=== PATIENT | male | born 1940 | race Caucasian/White ===

== ENCOUNTER 2022-12-05 09:00 | Outpatient (RCR) | payer MEDICARE, SELFPAY | END 2022-12-05 09:05 | disposition home or self-care (01) | LOC: PT 09:00 | DX: R26.89 Other abnormalities of gait and mobility (principal); G20 Parkinson's disease | CPT/HCPCS: 97112; 97163; 97164; 97530 ==

== ENCOUNTER 2023-04-11 14:40 | Emergency (ER) | payer MEDICARE, SELFPAY ==
[2023-04-11 14:40] VITALS: BP 140/84; PULSE 69; RESP 18; TEMP 36.8; O2SAT 97
--- NOTE | 2023-04-11 15:02 | EXP.UTC ---
Discharge Plan Disposition Patient Disposition: Home, Self-Care Condition: Good Prescriptions Prescriptions: New methocarbamol 500 mg tablet 500 mg PO BIDP PRN (Reason: muscle pain) Qty: 14 0RF No Action atenolol 25 mg tablet 25 mg PO DAILY simvastatin 40 mg tablet 40 mg PO DAILY losartan-hydrochlorothiazide 100-25 mg tablet 1 tab PO DAILY methylprednisolone 4 mg tablets,dose pack See Rx Instructions .ROUTE .COMPLEX Rx Instructions: medrol dose pack propranolol 20 mg tablet 20 mg PO DAILY Eliquis 5 mg tablet 5 mg PO DAILY Referrals Follow up/Referrals: Justin Hobson APRN [Primary Care Provider] - See instructions Activity Restrictions/Add. Instructions Additional Instructions/Restrictions: Rest the extremity. Start the pack of oral steroids that you were prescribed earlier tomorrow, since you had the steroid shot here today. The muscle relaxer (methocarbamol/robaxin) will make you drowsy, so don't drive or operate heavy machinery after taking it. It might also make you unsteady on your feet, so be very careful after taking it. Follow up with your regular doctor. GO TO THE ER FOR ANY WORSENING SYMPTOMS Clinical Impressions Clinical Impression: Left shoulder pain Instructions Patient Instructions: Methocarbamol, Ketorolac Injection, Dexamethasone Injection Discharge ED Provider: Anastacio Horton [facility] General Stated complaint: left shoulder pain Mode of Arrival: Ambulatory Source of Information: Patient Limitations: No Limitations Time Seen by Provider: 04/11/23 15:01 Description of Symptoms (Recalled from Triage Doc. by RN): HEENT Symptoms (Recalled from RN notes): Yes Resp Symptoms (Recalled from RN notes): No Skin Symptoms (Recalled from RN notes): No MS Symptoms (Recalled from RN notes): No Functional Status (Recalled from RN notes): n/a History of Present Illness Provider Complaint: Pt stated that he had a steroid shot from otho 3 weeks ago. He is having pain in left shoulder that radiates down arm. He denies chest pain, SOB, and cardiac issues. Related Data Home Medications Medication Instructions Recorded Confirmed apixaban 5 mg tablet (Eliquis) 5 mg PO DAILY 04/11/23 04/11/23 atenolol 25 mg tablet 25 mg PO DAILY 04/11/23 04/11/23 losartan 100 1 tab PO DAILY 04/11/23 04/11/23 mg-hydrochlorothiazide 25 mg tablet methylprednisolone 4 mg tablets in See Rx Instructions .Route .COMPLEX 04/11/23 04/11/23 a dose pack propranolol 20 mg tablet 20 mg PO DAILY 04/11/23 04/11/23 simvastatin 40 mg tablet 40 mg PO DAILY 04/11/23 04/11/23 Previous Rx's Medication Instructions Recorded methocarbamol 500 mg tablet 500 mg PO BIDP PRN muscle pain #14 04/11/23 tabs Allergies Allergy/AdvReac Type Severity Reaction Status Date / Time No Known Allergies Allergy Verified 04/11/23 14:59 Worker's Comp Is this a Worker's Comp case?: No [facility] Disclaimer: The information contained in this section may have been updated after the patient was seen, as this information can be updated by other users. Social History Smoking Status: Never smoker alcohol intake: never current occupational status: retired Travel in the last 8 weeks: None ROS Obtained: Yes All systems reviewed & no additional complaints except as documented Constitutional Constitutional: Denies chills and Denies fever(s) Eyes Eyes: Denies eye discharge ENT Ears, Nose, Mouth, and Throat: Denies dizziness, Denies otalgia and Denies sore throat Cardiovascular Cardiovascular: Denies chest pain Respiratory Respiratory: Denies shortness of breath, Denies chest congestion, Denies cough, Denies stridor and Denies wheezing Gastrointestinal Gastrointestingal: Denies nausea or vomiting Musculoskeletal Musculoskeletal: Reports as per HPI Integumentary/Breasts Skin/Breast: Denies rash Neurologic Neurologic: Denies dizziness and Denies paresthesias
[2023-04-11 15:48] VITALS: BP 140/84; PULSE 69; RESP 18; TEMP 36.8; O2SAT 97
== END 2023-04-11 15:48 | disposition home or self-care (01) ==
PROVIDERS: Emergency Provider Nurse Practitioner Family; PCP Nurse Practitioner Family
DX: M25.512 Pain in left shoulder (principal)
CPT/HCPCS: 73030; 96372; 99204; 99212; G0463

== ENCOUNTER → 2023-04-11 15:57 | Outpatient (CLI) | payer MEDICARE, SELFPAY ==
--- NOTE | 2023-04-11 16:15 | XR_ITS ---
FINAL REPORT CLINICAL HISTORY: PAIN IN LEFT SHOULDER FINDINGS: LEFT SHOULDER 3 views of the left shoulder were obtained. There is no acute fracture or dislocation. Visualized joint spaces are normally aligned. There are mild degenerative changes of the acromioclavicular and glenohumeral joints. Soft tissues are unremarkable. IMPRESSION: No acute bony abnormality. Reviewed, Interpreted and Dictated by Maikel Robles III, MD Transcribed by Lu Dos Santos Authenticated and [facility]
== END ==
PROVIDERS: PCP Nurse Practitioner Family; Visit Provider Nurse Practitioner Family
DX: M25.512 Pain in left shoulder (principal)
CPT/HCPCS: 73030

== ENCOUNTER → 2023-04-23 10:48 | Day surgery (SDC) | payer MEDICARE, SELFPAY ==
[2023-04-23 11:05] VITALS: BP 154/93; PULSE 53; RESP 18; TEMP 36.9; O2SAT 98; BMI 22.2
--- NOTE | 2023-04-23 12:07 | EXP.PAIN.OV ---
HPI Data of Consult Patient: new to practice Consult date: 04/23/23 Requesting Physician: Blu Patel CRNA Primary Care Provider: Justin Hobson APRN Consult Narrative Reason for consult: Shingles outbreak left shoulder/arm History of present illness: Mr. Moura is a 82 year old male who comes our clinic today for initial consultation regarding outbreak of shingles over the left shoulder and arm to the wrist. Distal lesions of the right arm are scabbing over however proximal lesions above the elbow continue to be active. Patient reports this has been going on for 3 weeks. Patient states the pain started prior to the lesions appearing. Patient has completed a 2-week cycle of acyclovir. Patient reports minimal improvement. Patient also started on gabapentin 100 mg 1 p.o. 3 times daily. However, he just started this medication last night. Patient received hydrocodone 5 mg from the ER doctor for 2 to 3 days. Patient states the hydrocodone decreased his pain by 50%. He rates his pain 9/10. CC: Blu Patel CRNA [facility] Disclaimer: The information contained in this section may have been updated after the patient was seen, as this information can be updated by other users. Medical History (Updated 04/23/23 @ 12:09 by Blu Patel CRNA) HLD (hyperlipidemia) HTN (hypertension) Irregular heart rate Pacemaker Surgical History (Updated 04/23/23 @ 11:03 by Pia Zapata RN) H/O aortic valve replacement H/O ascending aortic replacement Family History (Updated 04/23/23 @ 11:03 by Pia Zapata RN) Other No significant family history Social History (Updated 04/23/23 @ 11:03 by Pia Zapata RN) Smoking Status: Never smoker alcohol intake: never substance use type: denies use current occupational status: other Travel in the last 8 weeks: None Meds Home Medications and Allergies Home Medications Medication Instructions Recorded Confirmed Type apixaban 5 mg tablet (Eliquis) 5 mg PO DAILY 04/11/23 04/23/23 History atenolol 25 mg tablet 25 mg PO DAILY 04/11/23 04/23/23 History losartan 100 1 tab PO DAILY 04/11/23 04/23/23 History mg-hydrochlorothiazide 25 mg tablet methocarbamol 500 mg tablet 500 mg PO BIDP PRN muscle pain #14 04/11/23 04/23/23 Rx tabs methylprednisolone 4 mg tablets in See Rx Instructions .Route .COMPLEX 04/11/23 04/23/23 History a dose pack propranolol 20 mg tablet 20 mg PO DAILY 04/11/23 04/23/23 History simvastatin 40 mg tablet 40 mg PO DAILY 04/11/23 04/23/23 History acyclovir 800 mg tablet 800 mg PO 5XDAY #35 tabs 04/23/23 Rx gabapentin 300 mg capsule 300 mg PO TID #90 caps 04/23/23 Rx hydrocodone 5 mg-acetaminophen 325 1 tab PO BID #28 tabs 04/23/23 Rx mg tablet New Prescriptions to Start Prescriptions: acyclovir Bux,Poli gabapentin Bux,Poli hydrocodone-acetaminophen Bux,Poli Allergies Allergy/AdvReac Type Severity Reaction Status Date / Time No Known Allergies Allergy Verified 04/23/23 11:04 Objective Vital signs: Temp Pulse Resp BP Pulse Ox O2 Del Method 98.4 F 53 L 18 154/93 H 98 Room Air 04/23/23 11:05 04/23/23 11:05 04/23/23 11:05 04/23/23 11:05 04/23/23 11:05 04/23/23 11:05 Assessment and Plan *Assessment and plan (1) Shingles (herpes zoster) polyneuropathy: Status: Acute Category: Medical Code(s): B02.23 - Postherpetic polyneuropathy (2) Shingles outbreak: Status: Acute Category: Medical Code(s): B02.9 - Zoster without complications Plan Discussed in detail with the patient regarding treatment options. Patient has chronically anticoagulated with Eliquis. I recommend hydrocodone 5 mg 1 p.o. twice daily x14 days. Increase the gabapentin dose to gabapentin 300 mg 1 p.o. 3 times daily. Restart a 2-week cycle of acyclovir. Discussed in detail with the patie
== END | disposition home or self-care (01) ==
PROVIDERS: PCP Nurse Practitioner Family; Visit Provider Nurse Anesthetist, Certified Registered
DX: B02.23 Postherpetic polyneuropathy (principal)
CPT/HCPCS: 99202; G0463

== ENCOUNTER → 2023-05-08 13:13 | Outpatient (POV) | payer MEDICARE, SELFPAY ==
--- NOTE | 2023-05-08 13:14 | EXP.PAIN.SOA ---
[facility] Pain Management SOAP Note Subjective:: Patient is a pleasant 83-year-old male who presents today for follow-up. We are currently treating the patient for acute shingles outbreak of his left shoulder. Today he rates his pain a 5 out of 10. Patient denies any new trauma or injury. He states he continues to have significant pain in his left shoulder that goes down his arm related to his shingles outbreak. Patient does state he still has his rash however it is starting to dry in some spots. Patient does state the pain interferes with his ability perform activities of daily living. Patient does also state he has a previous history of left shoulder pain that he is scheduled to see Dr. Vincent in [place] for. Patient does have limited range of motion of his shoulder. At his last visit he was prescribed gabapentin 300 mg 3 times a day and [place] 5 mg with a 14-day supply of this medication. Patient denies any side effects from this medication. He is requesting refills on his pain medication as well as additional acyclovir. His Alphonso has been reviewed and is appropriate. Review of Systems: General: No recent weight changes, no fever, no sleep disturbances Respiratory: No cough, no shortness of air, no recurring pulmonary infections Cardiovascular/peripheral vascular: No chest pain, no palpitations, no edema, no shortness of breath Gastrointestinal: No new onset incontinence, normal bowel movements reported Genitourinary: No new onset incontinence Musculoskeletal: Left shoulder pain Psychiatric: [Normal mood/affect] Neurological: [Denies weakness in extremities], [denies balance issues] Objective:: Physical Exam: General: Alert and oriented x3, no acute distress, pleasant and cooperative Lungs: Respirations even and unlabored, symmetrical chest expansion Eyes: PERRL Musculoskeletal: Flexion and extension of left shoulder somewhat guarded secondary to pain Neurological: Speech clear, no gross sensory deficit Assessment:: Acute shingles outbreak left shoulder Plan:: Patient continues to experience significant pain in his left shoulder and around his diffuse rash related to acute shingles outbreak. I have discussed with the patient that he may benefit from trigger point injections along his rash site. Risk and benefits were discussed with patient and he would like to proceed forward with this plan of care. I will also order the patient compounding cream. I will send in a new prescription of acyclovir 800 mg 5 times a day and provide a 7-day supply of this medication. As well as send in a 1 week supply of [place] 5 mg twice daily. Patient will be scheduled for trigger point injections of his left shoulder. Patient has been instructed to contact the clinic with any concerns before the next appointment. Dr. Torres has reviewed this note and agrees with this plan of care. This note was dictated using voice recognition software and make contain errors or omissions. [facility] Disclaimer: The information contained in this section may have been updated after the patient was seen, as this information can be updated by other users. Medical History (Updated 04/23/23 @ 12:09 by Blu Patel CRNA) HLD (hyperlipidemia) HTN (hypertension) Irregular heart rate Pacemaker Surgical History (Updated 04/23/23 @ 11:03 by Pia Zapata RN) H/O aortic valve replacement H/O ascending aortic replacement Family History (Updated 04/23/23 @ 11:03 by Pia Zapata RN) Other No significant family history Social History (Updated 04/23/23 @ 12:12 by Blu Patel CRNA) Smoking Status: Never smoker alcohol intake: never substance use type: denies use current occupational status: other Travel in the last 8 weeks: None
[2023-05-08 14:55] VITALS: BP 113/58; PULSE 70; RESP 18; O2SAT 96; BMI 22.2
== END | disposition home or self-care (01) ==
PROVIDERS: PCP Nurse Practitioner Family; Visit Provider Nurse Practitioner Family
DX: B02.8 Zoster with other complications (principal)
CPT/HCPCS: 99212; G0463

== ENCOUNTER 2023-05-14 08:16 | Day surgery (SDC) | payer MEDICARE, SELFPAY ==
[2023-05-14 08:36] VITALS: BP 133/86; PULSE 73; RESP 18; TEMP 36.7; O2SAT 98; BMI 21.5
--- NOTE | 2023-05-14 09:28 | EXP.PAIN.PRO ---
Procedure Date: 05/14/23 Time: 08:50 Anesthesiologist:: Blu Patel CRNA Complications:: None Pre-procedure Diagnosis:: DJD left shoulder. Chronic left shoulder pain. Shingles outbreak left shoulder and arm. Post-procedure Diagnosis:: Same. Indications for Procedure:: Patient is a very pleasant 83-year-old male that comes our clinic today regarding chronic left shoulder pain. Also, patient having 6-week history of shingles outbreak left arm. Patient had a trauma 1 year ago to the left arm and shoulder from the fall. He is continue to have difficulty with his left shoulder since. Shingle outbreak reveals dried lesions left upper arm as well as left lower arm. Procedure Details:: Details of the procedure explained to the patient. The patient taken to procedure room placed in sitting position. The area over the left shoulder as well as scapula was cleansed using chlorhexidine's cleansing solution. Using a 25-gauge inch and half needle the left lateral superior border of the scapula was accessed with ease. 8 cc of a solution containing 0.25% Marcaine +1% lidocaine and 20 mg of Depo-Medrol was injected. At this time the left shoulder joint was accessed posteriorly. 6 cc of a solution containing 0.25% Marcaine +1% lidocaine and 20 mg of Depo-Medrol was injected. Patient tolerated procedure without difficulty. There are no complications. Plan and Disposition:: Patient was discharged without incident.
[2023-05-14 09:31] VITALS: BP 159/90; PULSE 66; RESP 18; O2SAT 98
== END 2023-05-14 09:31 | disposition home or self-care (01) ==
PROVIDERS: PCP Nurse Practitioner Family; Visit Provider Nurse Anesthetist, Certified Registered
DX: M19.012 Primary osteoarthritis, left shoulder (principal); M25.512 Pain in left shoulder; G89.29 Other chronic pain; B02.8 Zoster with other complications
CPT/HCPCS: 20552; 20610; J1040

== ENCOUNTER → 2023-06-13 14:22 | Outpatient (POV) | payer MEDICARE, SELFPAY ==
[2023-06-13 14:41] VITALS: BP 105/81; PULSE 68; RESP 18; O2SAT 97; BMI 22.2
--- NOTE | 2023-06-13 15:08 | XR_ITS ---
FINAL REPORT TECHNIQUE: 5 views CLINICAL HISTORY: CERVICAL RADICULOPATHY COMPARISON: None FINDINGS: There is reversal of the normal lordosis of the cervical spine. There is moderate degenerative change identified at the C4-5, C5-6, and C6-7 levels with disc space narrowing. Mild anterior osteophytes are present. No acute bony abnormalities are identified and no prevertebral soft tissue swelling is noted. There is bony narrowing of the C5-6 and C6-7 neural foramen bilaterally. IMPRESSION: Degenerative change as described above. No acute bony abnormality identified. Reviewed, Interpreted and Dictated by Marin Sullivan MD Transcribed by Sherice Gamble Authenticated and [facility]
--- NOTE | 2023-06-13 15:09 | EXP.PAIN.SOA ---
[facility] Pain Management SOAP Note Subjective:: Patient is a pleasant 83-year-old male who presents today for follow-up of trigger point injections of his left shoulder from acute shingles on 05/14/2023. We are currently treating the patient for left shoulder pain acute shingles outbreak. Today he rates his pain a 6 out of 10. Patient denies any new trauma or injury. He does state that he continues to have pain in his left shoulder all the way down his arm. Patient states that this has been going on for some time however it does cause difficulty performing activities of daily living such as cooking and cleaning. He states it has numbness and tingling and pressure around his wrist area. Patient does have a history of Parkinson's. He states he is scheduled for an EMG on Saturday. He also states he has been going to physical therapy and it does help. Patient states that it varies 1-2 times per week. Patient states from our last visit that the compounding cream he got did not seem to improve his symptoms. Patient was also prescribed [place] 5 mg however he states he did not notice any additional improvement with this medication. Patient was also prescribed gabapentin 300 mg 4 times a day however he states he still has not noticed significant relief. Patient does state he feels like he has neuropathy into his left arm. Patient does see Dr. Vincent for his shoulder issues and will have a follow-up coming up. His Alphonso has been reviewed and is appropriate. Review of Systems: General: No recent weight changes, no fever, no sleep disturbances Respiratory: No cough, no shortness of air, no recurring pulmonary infections Cardiovascular/peripheral vascular: No chest pain, no palpitations, no edema, no shortness of breath Gastrointestinal: No new onset incontinence, normal bowel movements reported Genitourinary: No new onset incontinence Musculoskeletal: Left shoulder, left arm pain Psychiatric: [Normal mood/affect] Neurological: [Denies weakness in extremities], [denies balance issues] Objective:: Physical Exam: General: Alert and oriented x3, no acute distress, pleasant and cooperative Lungs: Respirations even and unlabored, symmetrical chest expansion Eyes: PERRL Musculoskeletal: Flexion and extension of cervical [spine] somewhat guarded secondary to pain, [antalgic gait noted] Neurological: Speech clear, no gross sensory deficit Assessment:: Cervical radiculopathy, left shoulder pain, left arm pain, acute shingles outbreak, myofascial pain Plan:: Patient continues to experience significant pain throughout his left shoulder and down his left arm. I have discussed with the patient that his pain may be stemming from his cervical spine. Patient denies any previous cervical imaging. I will order x-ray and CT without contrast of his cervical spine. I have discussed with the patient that he may benefit from trying Lyrica. I have counseled him to discontinue the gabapentin and we will start him on 50 mg 3 times daily. We will send in a 14-day supply of this medication. Patient will return to clinic in 2 weeks for reevaluation of symptoms and plan of care. Patient has been instructed to contact the clinic with any concerns before the next appointment. Dr. Torres has reviewed this note and agrees with this plan of care. This note was dictated using voice recognition software and make contain errors or omissions. Addendum: Patient did contact our office and state that the Lyrica was not helping his pain symptoms. Patient was counseled to take 2 tablets 3 times a day. Patient called back the following day and stated that still made no additional improvement on his pain symptoms. Patient did request to go back to his previous gabapentin. We will send in a prescription of gabapentin 300 mg 4 times a day. Patient was counseled to discontinue his Lyrica. [facility] Disclaimer: The information contained in this section may have been updated after the patient was seen, as t
== END | disposition home or self-care (01) ==
PROVIDERS: PCP Nurse Practitioner Family; Visit Provider Nurse Practitioner Family
DX: M54.12 Radiculopathy, cervical region (principal); M25.512 Pain in left shoulder; M79.602 Pain in left arm; B02.9 Zoster without complications; M79.10 Myalgia, unspecified site
CPT/HCPCS: 72050; 99212; G0463

== ENCOUNTER → 2023-06-13 15:00 | Outpatient (CLI) | payer MEDICARE, SELFPAY | LOC: RAD 15:02 | PROVIDERS: PCP Nurse Practitioner Family; Visit Provider Nurse Practitioner Family | DX: M54.12 Radiculopathy, cervical region (principal); M54.2 Cervicalgia ==

== ENCOUNTER → 2023-07-02 10:44 | Outpatient (POV) | payer MEDICARE, SELFPAY ==
[2023-07-02 11:03] VITALS: BP 105/72; PULSE 69; RESP 18; O2SAT 97; BMI 22.2
--- NOTE | 2023-07-02 11:33 | A.OFFVIS_ITS ---
[facility] Pain Management SOAP Note Subjective:: This patient is a very pleasant 83-year-old male that returns our clinic today for follow-up visit regarding shingle outbreak left chest, shoulder, upper arm. Patient is being managed with gabapentin 300 mg 1 p.o. 3 times daily. Patient reports this is helping him to some degree. He reports gabapentin helps him sleep at night. Patient is 17 weeks post onset of shingle pain. Patient is currently seeing orthopedic surgery in [place] regarding chronic left shoulder pain. He continues with physical therapy 2-3 times a week for left shoulder pain. Patient had cervical x-ray. Does show some degenerative disc multiple levels. His Alphonso #[id number] has been reviewed and appropriate. Objective:: Patient is awake alert [place] x 3. No acute distress. Flexion-extension cervical lumbar spine somewhat guarded secondary to pain. Deep tendon reflexes upper lower extremities normal. Motor strength upper and lower extremities normal. There is no gross sensory deficit. Gait is normal. Assessment:: Degenerative disc cervical spine multilevels. Cervical radiculopathy. 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 Plan:: We discussed briefly potential cervical epidural steroid injection if in fact CT scan of the cervical spine shows nerve compression. We discussed in detail with the cervical spine nerves have to do with left shoulder pain. He will continue with left shoulder physical therapy 2-3 times a week under the direction of his orthopedic surgeon from [facility]. He will return to see us in 1 month. I will refill his gabapentin 300 mg 1 p.o. 3 times daily. [facility] Disclaimer: The information contained in this section may have been updated after the patient was seen, as this information can be updated by other users. Medical History HLD (hyperlipidemia) HTN (hypertension) Irregular heart rate Pacemaker Surgical History H/O aortic valve replacement H/O ascending aortic replacement Family History Other No significant family history Social History Smoking Status: Never smoker alcohol intake: never substance use type: denies use current occupational status: retired Travel in the last 8 weeks: None
== END | disposition home or self-care (01) ==
PROVIDERS: PCP Nurse Practitioner Family; Visit Provider Nurse Anesthetist, Certified Registered
DX: M50.10 Cervical disc disorder with radiculopathy, unspecified cervical region (principal); M19.012 Primary osteoarthritis, left shoulder; G89.29 Other chronic pain; B02.29 Other postherpetic nervous system involvement
CPT/HCPCS: 99212; G0463

== ENCOUNTER 2023-09-18 10:52 | Outpatient (POV) | payer MEDICARE, SELFPAY ==
[2023-09-18 11:05] VITALS: BP 130/71; PULSE 60; RESP 18; O2SAT 98; BMI 23.3
--- NOTE | 2023-09-18 11:18 | A.OFFVIS_ITS ---
[facility] Pain Management SOAP Note Subjective:: Patient is a pleasant 83-year-old male who presents today for follow-up. Today he rates his pain a 0 out of 10 but does state the pain much higher with increased activity or range of motion. Patient denies any new trauma or injury. He does state that he continues to have pain in his left shoulder all the way down his arm. He states he has recently had MRI imaging in [place]. He does state the pain when it starts is a sharp shooting pain with numbness and tingling. He does state that the pain will interfere with his ability perform activities of daily living such as cooking and cleaning. He is interested in any help we may be able to provide. He has been prescribed compounded cream in the past however did not notice significant improvement. He was also prescribed [place] in the past however states that it did not seem to make much difference either. Patient was also prescribed gabapentin 300 mg 4 times a day and states this does seem to be helping some. His Al[place] has been reviewed and is appropriate. Review of Systems: General: No recent weight changes, no fever, no sleep disturbances Respiratory: No cough, no shortness of air, no recurring pulmonary infections Cardiovascular/peripheral vascular: No chest pain, no palpitations, no edema, no shortness of breath Gastrointestinal: No new onset incontinence, normal bowel movements reported Genitourinary: No new onset incontinence Musculoskeletal: Left shoulder, left arm pain Psychiatric: [Normal mood/affect] Neurological: [Denies weakness in extremities], [denies balance issues] Objective:: Physical Exam: General: Alert and oriented x3, no acute distress, pleasant and cooperative Lungs: Respirations even and unlabored, symmetrical chest expansion Eyes: PERRL Musculoskeletal: Flexion and extension of left shoulder somewhat guarded secondary to pain, [antalgic gait noted] Neurological: Speech clear, no gross sensory deficit MRI left shoulder Acromion and acromial mid clavicular joint: Mild osteoarthritis Bursa: Small effusion subacromial subdeltoid bursa Glenoid humeral joint: Mild narrowing cartilage glenohumeral joint. Trace glenohumeral joint effusion and anterior subscapular recess Rotator cuff: Supraspinatus: Full-thickness insertional tear anterior, mid and some of the posterior insertional tendon with 10 mm retraction. Tendinosis. Mild edema of the supraspinatus muscle. Moderate grade partial bursal surface tear of the posterior infraspinatus tendon. Infraspinatus: Tendinosis. Small but high-grade partial into articular surface anterior critical zone tear. Moderate edema of the muscle. Subscapularis: Normal tendon and muscle Long head biceps tendon: Intact and normal course. Small amount of fluid surrounding the proximal extracapsular long head biceps tendon likely extension from joint effusion favored over tenosynovitis Labrum: Linear T2 hyperintensity undercutting the base of the anterior superior labrum likely a normal variant of the sublabral foramen Other: Inferior glenohumeral ligament normal. Coracoclavicular ligament normal Assessment:: Left shoulder pain, infraspinatus and supraspinatus tear Plan:: Patient is experiencing worsening pain in his left shoulder related to 10 years and other significant findings that we did go over during today's visit. I discussed with the patient that he may benefit from a left supraclavicular nerve block. Risk and benefits were discussed with patient and he would like to proceed forward with this plan of care. Due to his significant findings within his shoulder I will refer him to for evaluation of his left shoulder pain. I have also discussed with patient in future that he may benefit from a peripheral nerve stimulator or spinal cord stimulator. Educational handouts were given at todays visit we will follow-up with this at future visits. I will refill the patient's gabapentin 300 mg 4 times a day and provide a 1 month supply of this medication. Patient has been instructed to contact the clinic with any concerns before the next appointment. Dr. Torres has reviewed this note and agrees with this plan of care. This note was dictated using voice recognition software and make contain errors or omissions. [facility] Disclaimer: The information contained in this section may have been updated after the patient was seen, as this information can be updated by other users. Medical History Pacemaker Irregular heart rate HLD (hyperlipidemia) HTN (hypertension) Surgical History H/O ascending aortic replacement H/O aortic valve replacement Family History Other No significant family history Social History Smoking Status: Never smoker alcohol intake: never substance use type: denies use current occupational status: retired Travel in the last 8 weeks: None
== END 2023-09-18 23:59 | disposition home or self-care (01) ==
PROVIDERS: PCP Nurse Practitioner Family; Visit Provider Nurse Practitioner Family
DX: M75.102 Unspecified rotator cuff tear or rupture of left shoulder, not specified as traumatic (principal); M25.512 Pain in left shoulder
CPT/HCPCS: 99212; G0463

== ENCOUNTER 2024-06-29 09:00 | Outpatient (RCR) | payer MEDICARE, SELFPAY | END 2024-06-29 23:59 | disposition home or self-care (01) | LOC: OT 09:00 | PROVIDERS: Visit Provider Orthopaedic Surgery | DX: M75.122 Complete rotator cuff tear or rupture of left shoulder, not specified as traumatic (principal); Z98.890 Other specified postprocedural states | CPT/HCPCS: 97010; 97014; 97110; 97140; 97164; 97165; 97168; 97530; G0283 ==

== ENCOUNTER 2024-07-31 11:00 | Outpatient (RCR) | payer MEDICARE, SELFPAY | END 2024-07-31 23:59 | disposition home or self-care (01) | LOC: OT 11:00 | PROVIDERS: Visit Provider Orthopaedic Surgery | DX: M75.122 Complete rotator cuff tear or rupture of left shoulder, not specified as traumatic (principal); Z98.890 Other specified postprocedural states; G20.B1 Parkinson's disease with dyskinesia, without mention of fluctuations | CPT/HCPCS: 97110; 97140; 97168 ==

== ENCOUNTER 2024-09-28 09:00 | Outpatient (RCR) | payer MEDICARE, SELFPAY | END 2024-09-28 23:59 | disposition home or self-care (01) | LOC: ST 09:00 | PROVIDERS: Visit Provider Psychiatry & Neurology Neurology | DX: G20.C Parkinsonism, unspecified (principal) | CPT/HCPCS: 92507; 92524 ==

== ENCOUNTER 2024-10-14 10:48 | Outpatient (CLI) | payer MEDICARE, SELFPAY ==
--- NOTE | 2024-10-14 10:51 | FL_ITS ---
FINAL REPORT CLINICAL HISTORY: DYSPHAGIA fluoro time 4:08 21.80 mgy FINDINGS: MODIFIED BARIUM SWALLOW History: Dysphagia. FINDINGS: Fluoroscopy was provided for the speech pathologist to evaluate the swallowing mechanism. The patient was given several different consistencies of barium while the swallow was visualized fluoroscopically. The report of the speech pathologist should be consulted prior to making dietary decisions. Fluoro time: 4 minutes 8 seconds Radiation exposure in Reference air Kerma: 21.80 mGy. IMPRESSION: Modified barium swallow under fluoroscopic guidance. Please see the report of the speech pathologist for more detail. Reviewed, Interpreted and Dictated by Julien Timmons MD Transcribed by OWEN Serna Authenticated and [facility]
[2024-10-14] MEDS: BARIUM SULFATE (E-Z-HD 340GM);135ML BOTTLE 135 ML PO (11:31)
--- NOTE | 2024-10-14 14:23 | HMH.SLMBS2 ---
Speech & Language Evaluation Speech/Lang Modified Barium Swallow Start: 10/14/24 14:11 Freq: once Status: Complete Protocol: Document 10/14/24 14:11 [facility] (Rec: 10/14/24 14:23 [facility] laptop) DATE PULLER Evaluation Information DATE PULLER Evaluation Information Date of Evaluation: 10/14/24 Time of Evaluation: 11:00 Evaluation Type Initial Certification Reason for Referral dysphagia per MD order Does Patient Qualify for Service No Qualify/Failure Comment Based on results of the instrumental assessment, further swallowing therapy/ dysphagia exercises are not warranted at this time d/t safe and efficient swallow and WFL mastication and manipulation of bolus on all consistencies trialed. Pt is currently receiving skilled speech therapy services re: voice therapy r/t Parkinson's. Pt would benefit from GI consult d/t globus sensation. MBS Recommendations Plan Pt/Guardian verbally ack understanding Yes of dx/prognosis/goals Diet Dietary Recommendations Regular,Thin Liquids SL Swallow Guidelines Alt bite w/sip thru meal, Standard Aspiration Prec.,Eat at slow rate,Reflux precautions Treatment/Strategies Strategy/Precaution Recommended Sitting Upright (90 deg), Double Swallow,Small Bites and Sips,Alternate Liquids/Solids Referral/Other Recommended Referrals GI Consult Comment Pt expressed concerns of globus sensation after eating, as well as vomiting after meals. DATE PULLER Patient History Section DATE PULLER Patient History Primary Medical History Pt dx with Parkinson's disease approximately 8-12 months ago . Other PMHx includes heart disease, a pacemaker, and a previous episode of shingles. He is currently receiving skilled speech therapy services at [facility] for concerns r/ t vocal quality. Does Patient have Reflux or GERD? No Does Patient Experience Coughing or No Choking Episodes? Coughing or Choking Comment Pt stated he does not choke on food, however after meals he will vomit and choke. Does Patient Avoid Certain Food Textures Yes /Consistencies? Food Textures/Consistencies Comment Pt has the most difficulty with chicken and rice. Does Patient Utilize Compensatory No Strategies During Meals? Has Patient Experienced Significant No Weight Loss? Does Pt have Hx of Recurrent Pneumonias No or Respiratory Infections? Has Patient Noticed Change in Vocal Yes Quality? Vocal Quality Comment R/t Parkinson's disease Mod Barium Swallow Study Patient Orientation Patient Orientation Person,Place,Time,Situation Oral Expression Ability No Impairment Ability to Follow Directions Excellent Is Patient able to Perform Volitional Yes Throat Clear? Is Patient able to Perform Volitional Yes Cough? Is Patient able to Manage Secretions Yes Independently? Mod Barium Swallow Set Up Radiologist Maikel Travis Patient Presentation: Awake,Alert,Appropriate, Follows Commands Bolus Consistencies Trialed: Thin Liquids,Pudding,Puree, Mechanical Soft,Regular,Pill ( Barium Tablet) MBSS Observations Consistency & Strategy Trial Regular Penetration/Aspiration Scale 1 PAS Amount Neither Pharyngeal Residual 0-9% Mechanical Soft Penetration/Aspiration Scale 1 PAS Amount Neither Pharyngeal Residual 0-9% Puree Penetration/Aspiration Scale 1 PAS Amount Neither Pharyngeal Residual 0-9% Pudding Penetration/Aspiration Scale 1 PAS Amount Neither Pharyngeal Residual 0-9% Thin Penetration/Aspiration Scale 1 PAS Amount Neither Pharyngeal Residual 0-9% Mod Barium Swallow Impressions Oral Phase Summary & Impressions Oral Phase: Impression Minimal Impairment Oral Phase: Labial Closure No Impairment (WFL) Oral Phase: Bolus Formation Pooling L/R No Impairment (WFL) Oral Phase: Bolus Formation Under Tongue No Impairment (WFL) Oral Phase: Bolus Formation Scattered No Impairment (WFL) Loss Oral Phase: Mastication Rotary Chew Minimal Impairment Oral Phase: Mastication Munching Minimal Impairment Oral Phase: Mastication Lateralization Minimal Impairment Oral Phase: Lingual Movement No Impairment (WFL) Oral Phase: Residue Clearing No Impairment (WFL) Oral Phase: Summary Pt had minimally prolonged mastication and manipulation of bolus during regular food trials. Pharyngeal Phase Summary & Impressions Pharyngeal Phase: Impression Minimal Impairment Pharyngeal Phase: A/P Lingual Propulsion No Impairment (WFL) Spills Pharyngeal Phase: Swallow Response Delay No Impairment (WFL) Pharyngeal Phase: Base of Tongue No Impairment (WFL) Pharyngeal Phase: Epiglottic Coverage No Impairment (WFL) Pharyngeal Phase: Laryngeal Elevation No Impairment (WFL) Pharyngeal Phase: Vallecular Retention Minimal Impairment Clearing Pharyngeal Phase: Pharyngeal Wall No Impairment (WFL) Residue Clearing Pharyngeal Phase: Piriform Sinus Minimal Impairment Retention Pharyngeal Phase: Summary No aspiration or penetration observed on any consistency trialed throughout study. Trace residue observed in vallecula and pyriform sinus during thin liquid trials, which were cleared with a subsequent swallow. Pill trial WFL. Aspiration Aspiration? No Silent Aspiration? No DATE PULLER MBSS Goals Education Instructions provided DATE PULLER discussed clinical observations made during instrumental assessment, diet recommendations, compensatory strategies, and benefit of GI consult with pt and , each of which expressed understanding. Patient/Caregiver Able to Recall Able to recall/restate Information Reinforcement needed No PHYSICIAN CERTIFICATION: I certify the specified therapy services for Tiagopelondenis Moura are required, authorized, and reviewed every 30 days.
== END 2024-10-14 23:59 | disposition home or self-care (01) ==
LOC: RAD 10:49
PROVIDERS: PCP Nurse Practitioner Family; Visit Provider Nurse Practitioner Family
DX: R13.10 Dysphagia, unspecified (principal)
CPT/HCPCS: 74230; 92611

== ENCOUNTER 2024-10-26 09:00 | Outpatient (RCR) | payer MEDICARE, SELFPAY | END 2024-10-26 23:59 | disposition home or self-care (01) | LOC: ST 09:00 | PROVIDERS: Visit Provider Psychiatry & Neurology Neurology | DX: G20.C Parkinsonism, unspecified (principal) | CPT/HCPCS: 92507 ==

== ENCOUNTER 2025-05-08 17:51 | Emergency (ER) | payer MEDICARE, SELFPAY ==
--- OUTSIDE RECORDS SUMMARY | 2024-10-29 11:43 | XMS_ITS | Continuity of Care Document ---
Author Name [facility] Organization [facility] Care Team Providers Care Engineering Technician Name Role Phone [facility] Unavailable Unavailable Problems Combined list of problems from Department of Defense and [facility] facilities. It does not include entries that were removed or entered in error. Problem Status Onset Date Problem Type Date of Resolution Comments Source Hypertension Active Condition [facility] Mitral Valve Insufficiency Active Condition May 25, 2002 Entered By: SUJATHA KRAFT Comment: (mild) and trace AI per ECHO 05-02 [facility] Immunizations Combined list of available immunizations from the Department of [facility] and [facility] facilities. Immunization Series Date Given Administered By Site Reaction Lot Number CVX Code Drug Certified Peer Specialist Status Comments Source TD(ADULT) UNSPECIFIED FORMULATION 1995 139 complet ed [place] [facility] Encounters Combined list of: 1) Encounters from Department of [facility] facilities going backup to the last 18 months, not all [place] inpatient encounters are included; 2) Encounters from the Department [facility] facilities going backup to 280 months. Location Location Details Encounter Type Encounter Number Reason For Visit Attending Provider ADM Date DC Date Status Disposition Source [facility] Outpatient Encounter [id number] 10/29 [place] [facility] Outpatient Encounter [id number] 10/29 [place] [facility] Social History Combined list of available smoking, tobacco, and other social history from Department of [facility] and [facility] facilities. Social History Type Response Date Comment Source Tobacco smoking status NHIS HF V9 CURRENT NON-SMOKER 02/16/2002 [facility] History of tobacco use HF V9 INACTIVATE TOBACCO USE SCREEN 02/16/2002 quit 1963 (smoked 1 yr only) [facility]
[2025-05-08 17:52] VITALS: BP 136/74; PULSE 67; RESP 16; TEMP 36.4; O2SAT 97; BMI 22.6
[2025-05-08 18:01] VITALS: BP 136/74; PULSE 61; O2SAT 96
--- NOTE | 2025-05-08 18:08 | PC.NURSE ---
stroke alert called at this time
--- NOTE | 2025-05-08 18:10 | CT_ITS ---
PROCEDURE INFORMATION: Exam: CT Head Without Contrast Exam date and time: 05/08/2025 6:12 PM Age: 85 years old Clinical indication: Stroke-like symptoms; Other: Possible stroke TECHNIQUE: Imaging protocol: Computed tomography of the head without contrast. Radiation optimization: All CT scans at this facility use at least one of these dose optimization techniques: automated exposure control; mA and/or kV adjustment per patient size (includes targeted exams where dose is matched to clinical indication); or iterative reconstruction. Other technique: STROKE PROTOCOL was implemented. COMPARISON: CR XR CERVICAL SPINE 5V 06/13/2023 3:10 PM FINDINGS: Brain: Age-related cerebral volume loss. 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 The collection over the right parietal lobe measures 5 mm maximum thickness in the contralateral collection measures 7 mm in thickness. The collection over the right frontal lobe measures 6 mm in thickness. All of the collections exhibit minor mass effect on the underlying cerebral cortex. No sulcal effacement or midline shift. No acute intracranial hemorrhage or subdural hematoma. No evidence of acute/subacute infarct. 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 Cerebral ventricles: No hydrocephalus. Paranasal sinuses: No air fluid levels. Mastoid air cells: Visualized mastoid air cells are clear. Bones: No evidence of acute calvarial or skull base fracture. Soft tissues: Unremarkable. IMPRESSION: 1. No evidence of acute intracranial hemorrhage or acute/subacute vascular territory infarct. 2. 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 3. 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 ASSESSMENT: ASPECTS ([place] Stroke Program Early CT Score) is 10.
--- NOTE | 2025-05-08 18:10 | CT_ITS ---
PROCEDURE INFORMATION: Exam: CTA Head With Contrast, Arteriography Exam date and time: 05/08/2025 6:14 PM Age: 85 years old Clinical indication: Stroke-like symptoms; Other: Possible stroke TECHNIQUE: Imaging protocol: Computed tomographic angiography of the head with contrast. Exam focused on the arteries. 3D rendering (Not supervised by radiologist): MIP and/or 3D reconstructed images were created by the technologist. Radiation optimization: All CT scans at this facility use at least one of these dose optimization techniques: automated exposure control; mA and/or kV adjustment per patient size (includes targeted exams where dose is matched to clinical indication); or iterative reconstruction. Contrast material: ISO 370; Contrast volume: 80 ml; Contrast route: INTRAVENOUS (IV); COMPARISON: CT HEAD/BRAIN WO CON 05/08/2025 6:12 PM FINDINGS: ANTERIOR CIRCULATION: Right internal carotid artery: Intracranial segment is patent with no significant stenosis. No aneurysm. Right middle cerebral artery: No occlusion or significant stenosis. No aneurysm. Right anterior cerebral artery: Hypoplastic a1 segment of the right anterior cerebral artery compensated via the contralateral FLOR and anterior communicating artery. No occlusion or significant stenosis distally. No aneurysm. Left internal carotid artery: Minor ectasia in the left internal carotid artery. No aneurysm. No occlusion or significant stenosis. Left middle cerebral artery: No occlusion or significant stenosis. No aneurysm. Left anterior cerebral artery: No occlusion or significant stenosis. No aneurysm. POSTERIOR CIRCULATION: Right vertebral artery: No occlusion or significant stenosis. No aneurysm. Left vertebral artery: No occlusion or significant stenosis. No aneurysm. Basilar artery: No occlusion or significant stenosis. No aneurysm. Right posterior cerebral artery: No occlusion or significant stenosis. No aneurysm. Left posterior cerebral artery: No occlusion or significant stenosis. No aneurysm. Brain: No abnormally enhancing brain lesion, mass effect, or midline shift. Cerebral ventricles: No hydrocephalus. Bones/joints: No acute calvarial or skull base fracture. Soft tissues: Unremarkable. IMPRESSION: 1. No evidence of large vessel occlusion or significant stenosis in the intracranial cerebral arteries. 2. Concurrent neck CTA reported separately. PROCEDURE INFORMATION: Exam: CT Maxillofacial With Contrast Exam date and time: 05/08/2025 6:14 PM Age: 85 years old Clinical indication: Stroke-like symptoms; Other: Possible stroke TECHNIQUE: Imaging protocol: Computed tomography of the face with contrast. Radiation optimization: All CT scans at this facility use at least one of these dose optimization techniques: automated exposure control; mA and/or kV adjustment per patient size (includes targeted exams where dose is matched to clinical indication); or iterative reconstruction. COMPARISON: CT HEAD/BRAIN WO CON 05/08/2025 6:12 PM FINDINGS: Paranasal sinuses: Atrophic right maxillary sinus with sclerotic changes of the sinus wall compatible with sequelae of chronic and/or recurrent sinusitis. No evidence of acute sinusitis. Orbital cavities: Globes and orbital structures are unremarkable. Bones: No evidence of acute fracture. Bilateral temporomandibular joints are congruent. Pterygoid plates and lamina papyracea are intact. Soft tissues: Unremarkable. IMPRESSION: No acute findings.
--- NOTE | 2025-05-08 18:10 | CT_ITS ---
PROCEDURE INFORMATION: Exam: CTA Neck With Contrast Exam date and time: 05/08/2025 6:14 PM Age: 85 years old Clinical indication: Stroke-like symptoms; Other: Possible stroke TECHNIQUE: Imaging protocol: Computed tomographic angiography of the neck with contrast. Exam focused on the cervical segments of the vasculature. 3D rendering (Not supervised by radiologist): MIP and/or 3D reconstructed images were created by the technologist. Radiation optimization: All CT scans at this facility use at least one of these dose optimization techniques: automated exposure control; mA and/or kV adjustment per patient size (includes targeted exams where dose is matched to clinical indication); or iterative reconstruction. Contrast material: ISO 370; Contrast volume: 80 ml; Contrast route: INTRAVENOUS (IV); COMPARISON: CT ANGIO NECK 05/08/2025 6:14 PM FINDINGS: Right common carotid artery: No stenosis. No dissection or occlusion. Right internal carotid artery: No stenosis of the extracranial segment. No dissection or occlusion. Right external carotid artery: No occlusion or stenosis of the origin. Left common carotid artery: No stenosis. No dissection or occlusion. Left internal carotid artery: Atherosclerotic plaque at the left carotid bulb and proximal internal carotid artery without significant stenosis. No dissection or aneurysm. Left external carotid artery: No occlusion or stenosis of the origin. Right vertebral artery: No stenosis. No dissection or occlusion. Left vertebral artery: No stenosis. No dissection or occlusion. Soft tissues: Unremarkable. Bones/joints: No acute osseous abnormality. IMPRESSION: 1. No evidence of dissection, occlusion or significant stenosis in the extracranial cerebral arteries. 2. Concurrent head CTA reported separately. REFERENCES: NASCET CRITERIA. The degree of stenosis in the cervical segment of the internal carotid artery is based on NASCET criteria. Normal is no stenosis. Mild is less than 50% stenosis. Moderate is 50-69% stenosis. Severe is 70% to 99% stenosis. Total occlusion is no detectable patent lumen.
--- NOTE | 2025-05-08 18:10 | ECG_ITS ---
APPROVED REPORT Exam: Resting ECG HR:66 bpm ECG Measurements Heart Rate 66 AXES QRSd 179 QRS 268 QT 474 T 72 QTc 488 Conclusion UNCERTAIN IRREGULAR RHYTHM ELECTRONIC VENTRICULAR PACEMAKER -- CONTOUR ANALYSIS BASED ON INTRINSIC RHYTHM RIGHT AXIS DEVIATION [QRS AXIS > 100] RIGHT BUNDLE BRANCH BLOCK AND POSSIBLE RIGHT VENTRICULAR HYPERTROPHY [RBBB, 1.5 mV R IN V1, RAD] INFERIOR MYOCARDIAL INFARCTION , POSSIBLY ACUTE [40+ ms Q WAVE AND/OR ST/T ABNORMALITY IN II/aVF] ACUTE OR UNCONFIRMED REPORT Electronically signed by : Anastacio Salinas, 05/08/2025 23:12:10
[2025-05-08 18:17] LABS: Hematocrit 43.8 % (42.0-52.0); Hemoglobin 14.3 g/dL (14.1-18.0); Immature Granulocytes % 0.4 %; Mean Corpuscular HGB Conc 32.6 g/dL (31.8-35.4); Mean Corpuscular Hemoglobin 30.4 pg (27.0-31.2); Mean Corpuscular Volume 93.0 fl (80-94); Nucleated Red Blood Cells % 0 %; Platelet Count 156 K/mm3 (142-424); Red Blood Count 4.71 M/mm3 (4.60-6.20); Red Cell Distribution Width-SD 46.5 fL; White Blood Count 7.8 K/mm3 (4.8-10.8)
[2025-05-08] MEDS: SODIUM CHLORIDE 0.9% 10ML SYR (RAD ONLY) 10 ML IV (18:20)
[2025-05-08] MEDS: 0.9 % SODIUM CHLORIDE 50 ML VIAL IV (18:20)
[2025-05-08] MEDS: IOPAMIDOL-370 (76%);100ML BOTTLE 80 ML IV (18:20)
--- OUTSIDE RECORDS SUMMARY | 2025-05-08 18:22 | XMS_ITS | Clinical Summary ---
Author Organization Healthcare Address [address] [place] [address] Care Team Providers Care Depositing Machine Operator Name Role Phone Unavailable Primary Care Provider Unavailabl e Social History Tobacco Use Types Packs/Day Years Used Date Smoking Tobacco: Never Assessed Sex and Gender Information Value Date Recorded Sex Assigned at Not on file Legal Sex Male 7:38 PM EDT Gender Identity Not on file Sexual Orientation Not on file Plan of Treatment Upcoming Encounters Date Type Department Care Team (Late st Contact Info) Description 05/14/2025 11:20 AM EST Office Visit [facility] [address] [place] [address] Yany Lin, LEAD DESIGNER [address] [facility] [address] [place] [address] Health Maintenance Due Date Last Done Comments [facility]-Depression Screening 1942 [facility]-Medicare Annual Wellness (AWV) 1942 [facility]-Infant/Child/Adol SDOH Screenings 1942 [facility]- SDOH Screenings 1960 [facility]-Adult SDOH Screenings 1960 [facility]-RSV Vaccine: 60+ Years or (1 - 1-dose 75+ series) 2017 [facility]-DTaP,Tdap,and Td Vaccines (2 - Td or Tdap) 08/06/2023 08/06/2013 [id number] Vaccine (2 - 2024- season) 2025 01/28/2021 [facility]-Influenza Vaccine (#1) 2025 [facility]-Pneumococcal Vaccine: 50+ Years Completed 05/01/2022 [facility]-Zoster Vaccines Completed 01/23/2024, 11/21/2023 HPV Vaccines Aged Out No longer eligi ble based on patient's age to complete this topic [facility]-HIB Vaccines Aged Out No longer e ligible based on patient's age to complete this topic [facility]-Hepatitis A Vaccines Aged Out No longer eligible based on patient's age to complete this topic [facility]-IPV Vaccines Aged Out No longer e ligible based on patient's age to complete this topic [facility]-Rotavirus Vaccines Aged Out No lo nger eligible based on patient's age to complete this topic Insurance [place] [address] [place] [address] MEDICARE
--- OUTSIDE RECORDS SUMMARY | 2025-05-08 18:22 | XMS_ITS | Continuity of Care Document ---
Author Organization [facility] Address [address] [place] [address] Care Team Providers Care Branch Account Executive Name Role Phone SARAH CONTRERAS Primary Care Provider [phone] Assessment No assessment recorded. Plan of Treatment Reminders Order Date Submit Date Provider Last Modified By Organization Details Last Modified Time Details Appointments Establish ed Patient 20 2024 01:00P Sindhu Hobson APRN Not available Not available Not available Lab None recorded. Referral None recorded. Procedures None recorded. Surgeries None recorded. Imaging None recorded. Medication Orders cephalexi n 500 mg capsule 2024 025 [facility] [id number], [address] [place], [address], 04/01/2025 05:01:59 mupirocin 2 % topical ointment 2024 025 [facility] [id number], [address] [place], [address], 03/18/2025 10:39:41 cyanocoba jennifer (vit B-12) 1,000 mcg/mL injection solution 2024 025 [facility] [id number], [address] [place] [address], [address], 03/18/2025 10:39:34 Patient TargetsNo targets recorded. Patient InstructionsNo instructions recorded. Reason for Referral None Reported. 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 Procedures Surgical History Date Name Laterality Status Provider Name and Address Organization Details Recorded Time 08/08/19 Advance Care Planning completed Deborah Monroe [place] - [facility] 08/08/2023 14:01:44 08/08/19 Functional Status Assessed completed Deborah Monroe [place] - [facility] 08/08/2023 14:01:44 12/22/19 Dexcom Placement completed Justin Franklincarmenmatthew, [employer] [address], [place], [address], [place] - [facility] 12/21/2022 09:59:04 07/01/19 22 Pacemaker Placement completed Deborah Monroe [place] - [facility] 08/08/2023 14:02:26 07/01/19 22 Eye Surgery completed Deborah Monroe [place] - [facility] 08/08/2023 14:02:26 10/09/19 10 Cardiac Surgery completed Deborah Monroe [place] - [facility] 08/08/2023 14:02:26 heart valve replacement completed Deborah Monroe [place] [facility] 04/23/2022 14:01:55 replacement of ascending aorta completed Deborah Monroe [place] [facility] 04/23/2022 14:02:11 Pacemaker Placement completed Deborah Monroe [place] - [facility] 04/23/2022 14:02:33 Eye Surgery completed Deborah Beltranler [place] - [facility] 04/23/2022 14:02:40 Imaging Results None recorded. Procedure Notes None recorded. Medical Equipment None Reported. Allergies No known drug allergies Medications Name Sig Start Date Stop Date Status Note LastModified by Organization Details LastModified Time amoxicill in 500 mg capsule Take 1 capsule twice a day by oral route for 10 days. 11/27 completed Not Available Not Available Not Available carvedilo l 12.5 mg tablet Take 1 tablet twice a day by oral route. active Not Available Not Available No t Available ketoconaz ole 2 % shampoo 07/23 completed Not Available Not Available Not Available pravastat in 40 mg tablet take 1 tablet (1 mg) by oral route qd 06/11 completed pravasta tin 40 mg oral tablet;R ecorded Status: Recorded on: 06/11/20 08 11:29AM; User: [email or web address] ;EstAmbar Silverioi on: 06/11/20 08;Print ed: 06/11/20 08 Not Available Not Available Not Available acetamino phen 500 mg tablet Take 2 tablets 4 times a day by oral route. active Not Available Not Available No t Available simvastat in 40 mg tablet 1 tablet qd active Not Available Not Available No t Available losartan 100 mg-hydroc hlorothia zide 25 mg tablet take 1 tablet by oral route once daily for 30 days active Not Available Not Available No t Available oxycodone -acetamin ophen 5 mg-325 mg tablet 03/09 completed Not Available Not Available Not Available benzonata te 100 mg capsule Take 1 capsule 3 times a day by oral route as needed for 7 days. 10/26 completed Not Available Not Available Not Available cephalexi n 500 mg capsule Take 1 capsule twice a day by oral route for 7 days. 04/01 completed Not Available Not Available Not Available cyanocoba jennifer (vit B-12) 1,000 mcg/mL injection solution Inject 1 mL every month by subcutan eous route. 2024 active Not Available Not Available Not Avai lable carbidopa 10 mg-levodo pa 100 mg tablet Take 1 tablet 3 times a day by oral route. 12/04 completed Not Available Not Available Not Available Hyzaar 50 mg-12.5 mg tablet Take 1 tablet every day by oral route. 07/23 completed Not Available Not Available Not Available gabapenti n 300 mg capsule Take 1 capsule 4 times a day by oral route. active Not Available Not Available No t Available diclofena c sodium 75 mg tablet,de layed release take 1 tablet (75 mg) by oral route 2 times per day with food 05/10 completed diclofen ac sodium 75 mg oral tablet,d elayed release (/LUIS); Recorded Status: Recorded on: 03/11/20 11:05AM; User: lotus Scott on: 05/10/20;Print ed: 03/11/20 Not Available Not Available Not Available mupirocin 2 % topical ointment APPLY A SMALL AMOUNT TO THE AFFECTED AREA BY TOPICAL ROUTE 3 TIMES PER DAY 2024 active Not Available Not Available Not Avai lable gabapenti n 100 mg capsule Take 1 capsule 3 times a day by oral route for 3 days. 05/21 completed Not Available Not Available Not Available dexametha sone sodium phosphate 4 mg/mL injection solution Inject 1 mL as needed by intramus cular route. 12/21 completed Not Available Not Available Not Available carbidopa 25 mg-levodo pa 100 mg tablet 1 tablet three times per day active Not Available Not Available No t Available [place] 5 mg-325 mg tablet Take 1 tablet every day by oral route at bedtime for 6 days, for shoulder pain. 08/08 completed Not Available Not Available Not Available atenolol 50 mg tablet take 1 tablet (50 mg) by oral route once daily for 30 days 09/07 completed atenolol 50 mg oral tablet;R ecorded Status: Recorded on: 03/11/20 09 11:05AM; User: lotus Scott on: 09/08/19 10;Print ed: 03/11/20 Not Available Not Available Not Available Metanx 2.8 mg-2 mg-25 mg tablet take 1 tablet by oral route once daily 06/11 completed Replaced /Retired Drug 2.8-2-25 mg oral tablet;R ecorded Status: Recorded on: 06/11/20 08 11:29AM; User: lotus Scott on: 06/11/20 08;Print ed: 06/11/20 Not Available Not Available Not Available simvastat in unknown 12/04 completed Not Available Not Available Not Available atenolol 12.5mg 1 qd 10/27 completed Not Available Not Available Not Available metoprolo l succinate unknown 11/27 completed Not Available Not Available Not Available Eliquis 5 mg tablet TAKE ONE (1) TABLET BY MOUTH TWICE A DAY 2024 active Not Available Not Available Not Avai lable Flonase Allergy Relief 50 mcg/actua tion nasal spray,mookie pension [place] 1 spray every day by intranas al route. 2024 active Not Available Not Available Not Avai lable Entresto 24 mg-26 mg tablet Take 0.5 tablets twice a day by oral route. active Not Available Not Available No t Available Benadryl Allergy 50 mg tablet Take 2 tablets every day by oral route at bedtime. active Not Available Not Available No t Available Vitals Date Recorded Body height Body mass index (BMI) Body weight Respiratory rate Body temperature Heart rate Oxygen saturation Oxygen saturation in Arterial blood by Pulse oximetry Systolic And Diastolic Provider Name and Address Organization Details Last Updated DateTime 5 177.8 cm 22.8 kg/m2 00822.1 9 g 18 /min 98 [degF] 68 /min 97 % 97 % 118/72 mm[Hg] Natalie Stears [place] - [facility] 5 10:18:07 Social History Question Answer Notes LastModified by Organizat ion Details LastModified Time Tobacco Smoking Status Never Smoker Deborah [place], [place] - [facility] 04/23/2022 14:01:34 Do You Have An Advance Directive? No Information n ot available 12/21/2022 Are You Blind Or Do You Have Difficulty Seeing? No Information n ot available 08/08/2023 Is Blood Transfusion Acceptable In An Emergency? Yes Information not available 08/08/2023 What Is Your Level Of Caffeine Consumption? Occasional Information not available 04/23/2022 How Much Tobacco Do You Chew? None Information not available 08/08/2023 In The 14 Days Before Symptom Onset, Have You Had Close Contact With A Laboratory-confirm ed COVID-19 While That Case Was Ill? No Information n ot available 08/08/2023 In The 14 Days Before Symptom Onset, Have You Had Close Contact With A Person Who Is Under Investigation For COVID-19 While That Person Was Ill? No Information not available 08/08/2023 Have You Been To An Area Known To Be High Risk For COVID-19? No Information not available 08/08/2023 Are You Deaf Or Do You Have Serious Difficulty Hearing? No Information not available 05/01/2022 What Type Of Diet Are You Following? REGULAR Information n ot available 08/08/2023 Which Illicit Or Recreational Drugs Have You Used? None Information not available 08/08/2023 Have You Processed Blood Or Body Fluids From An Ebola Virus Disease Patient Without Appropriate PPE? No Information not available 08/08/2023 Do You Reside In Or Have You Traveled To An Area Where Ebola Virus Transmission Is Active? No Information not available 08/08/2023 What Is The Highest Grade Or Level Of School You Have Completed Or The Highest Degree You Have Received? [id number] Information not available 08/08/2023 Have There Been Any Changes To Your Family Or Social Situation? No Information no t available 08/08/2023 What Is The Fluoride Status Of Your Home? Unknown Information not available 08/08/2023 Have You Recently Or Are You Planning To Travel To An Area With Zika Virus? No Information not available 08/08/2023 How Many Years Have You Used Illicit Or Recreational Drugs? 0 Information not available 08/08/2023 Do You Have A Medical Power Of Injection Molding Machine Offbearer? No Information not available 08/08/2023 What Was The Date Of Your Most Recent Tobacco Screening? 08/24/2024 [email or web address] Information not available 08/24/2024 Do You Use Protection Against STDs? No Information not available 08/08/2023 What Is Your Relationship Status? Information not available 12/21/2022 Do You Use Your Seat Belt Or Car Seat Routinely? Yes Information not available 12/05/2023 Are You Sexually Active? No Information not available 08/08/2023 Do You Have Smoke And Carbon Monoxide Detectors In Your Home? Yes Information not available 05/01/2022 Are You Passively Exposed To Smoke? No Information no t available 05/01/2022 Do You Use Sunscreen Routinely? Yes Information not available 12/05/2023 Has Tobacco Cessation Counseling Been Provided? No Information not available 08/08/2023 Do You Have Difficulty Walking Or Climbing Stairs? No Information not available 08/08/2023 Sex: Male Functional Status Question Answer Note LastModified by Organizat ion Details LastModified Time Do you use any illicit or recreational drugs? No Information not available 04/23/2022 Do you or have you ever used any other forms of tobacco or nicotine? No Information not available 12/05/2023 What is your level of alcohol consumption? None Information not available 04/23/2022 Do you or have you ever used smokeless tobacco? Never used smokeless tobacco Information not available 08/08/2023 Are you currently employed? No Information not available 05/01/2022 Do you have transportation difficulties? No Information not available 08/08/2023 Are you able to walk independently without assistance or assistive devices? YESWOREST Information not available 08/08/2023 Do you have difficulty doing errands alone? No Information not available 08/08/2023 Are you able to care for yourself independently? Yes Information not available 05/01/2022 Do you have difficulty dressing, bathing, grooming, or toileting? No Information not available 08/08/2023 Do you or have you ever used e-cigarettes or vape? Never used electronic cigarettes Information not available 08/08/2023 What is your exercise level? Occasional Information not available 12/05/2023 Mental Status Question Answer Note LastModified by Organizat ion Details LastModified Time Do you feel stressed (tense, restless, nervous, or anxious, or unable to sleep at night)? [id number] Information not available 08/08/2023 Do you have difficulty concentrating, remembering or making decisions? No Information no t available 08/08/2023 Family History Relationship Description Onset Age of this Age Resolved Age Notes LastModified by Organization Details LastModified Time Father No current problems or disability [email or web address] Not available 12/04 15:39:50 Father Disorder of lung [email or web address] Not available 2023 14:02:10 Father Cerebrovascu lar accident cbuckler Not available 01/2024 14:02:10 Father Hypertensive disorder cbuckler Not available 2023 14:02:10 Mother No current problems or disability [email or web address] Not available 12/04 15:39:50 Mother Hypertensive disorder cbuckler Not available 2023 14:02:10 Mother Heart disease cbuckler Not available 2023 14:02:10 Paternal Grandfather Cerebrovascu lar accident cbuckler Not available 01/2024 14:02:10 Medical History Condition Response Skin Problems Y Muscle, Joint, or Bone Problems Y Heart Disease Y Neuropathy Y Immunizations Vaccine Type Date Status Note Provider Nam e and Address Organization Details Recorded Time zoster recombinant 4 completed Deborah [place], [place] - [facility] 05/21/2024 10:56:44 influenza, unspecified formulation 8 completed Not Available [facility] 08/08/2023 13:40:53 Pneumococcal conjugate PCV20, polysaccharide HGU028 conjugate, adjuvant, PF 2 completed Natalie Stears null, [place] - [facility] 05/01/2022 16:39:21 Tdap 2 completed Deborah [place], [place] - [facility] 08/08/2023 14:49:14 zoster recombinant 4 completed Natalie Stears null, [place] - [facility] 03/09/2024 08:46:18 COVID-19, mRNA, LNP-S, PF, 100 mcg/0.5mL dose or 50 mcg/0.25mL dose 1 completed Natalie Stears null, [place] - [facility] 03/09/2024 08:46:19 Tdap 4 completed Natalie Avalos null, [place] - [facility] 03/09/2024 08:46:19 Past Encounters Encounter ID Performer Location Encounter Start Date Encounter Closed Date Diagnosis/Indication Diagnosis SNOMED-CT Code Diagnosis ICD10 Code Diagnosis IMO Codes Diagnosis Note [id number] Justin Hobson APRN [address] [address] 03/04/2025 15:36:32 03/04/2025 17:08:40 Cobalamin deficiency 054408016 E53.8 Pain in left arm 8373939 00 M79.602 029989 [id number] Justin Hobson APRN [address] [address] 03/18/2025 09:56:32 03/18/2025 10:52:00 Cobalamin deficiency 021073280 E53.8 Tear of skin 121824950 S 41.119A 2316753745 left forearmcle aned with hipacleans antibiotic ointment appliedtel fa and gauze applied Health Concerns Section Related Observation LastModified by Organization Detai ls LastModified Time None Recorded Concern Status LastModified by Organization Details LastModified Time None Recorded Payers Encounter Date Sequence Insurance Name Policy Number Policy Lee Covered Member ID Lee Member ID Guarantor Name 03/18/2025 1 [employer] (MEDICARE REPLACEMENT/ ADVANTAGE - PPO) Molly Moura [id number] Molly Moura Notes Date Note Type Note Provider Name and Address Organization Details Recorded Time 03/18/2025 text/html ROS as noted in the HPI 84 year old male who presents to the office today with concerns ofskin tear on left lower arm, happened on Saturday with a golf cartb 12 injection Justin Hobson APRN [address], [place], [address], [place] - [facility] 05/03/2025 14:09:59
--- OUTSIDE RECORDS SUMMARY | 2025-05-08 18:22 | XMS_ITS | Data Portability ---
Author Organization [facility] Address [address] [place] [address] Care Team Providers Care Word Processing Operator Name Role Phone ESSIE MARISABEL Primary Care Provider [phone] Assessment No assessment recorded. Plan of Treatment Reminders Order Date Submit Date Provider Last Modified By Organization Details Last Modified Time Details Appointments None recorded. Lab None recorded. Referral None recorded. Procedures None recorded. Surgeries None recorded. Imaging MRI, shoulder, w/o contrast - LEFT 2022 023 [email or web address] [place] (Centralized Scheduling), [address] [place] [address] , [place], [address], 4 15:34:42 XR, shoulder 2022 023 [email or web address] [facility], [address] [place] [address] [place], [address], 3 16:04:26 Medication Orders Kenalog 10 mg/mL suspension for injection [address] [facility] [id number], [address] [place], [address], 4 14:58:08 bupivacaine (PF) 0.5 % (5 mg/mL) injection solution [address] [facility] [id number], [address] [place], [address], 4 14:58:08 tramadol 50 mg tablet 2023 024 On license of [facility] [id number], [address] [place], [address], 14:56:59 Patient TargetsNo targets recorded. Patient InstructionsNo instructions recorded. Reason for Referral None Reported. Results Created Date Observation Date Name Description Value Unit Range Abnormal Flag Note LastModifiedBy Organization Detail LastModifiedTime 05/22/20 23 XR, shoul monica No observ ation record ed. AKILAH Alvarez [facility] [address] [place], [address], 05/22/2023 10:28:48 Result Notes None recorded. Medical Equipment None Reported. Allergies No known drug allergies Medications Name Sig Start Date Stop Date Status Note LastModified by Organization Details LastModified Time amoxicillin 500 mg capsule 08/21 completed Not Available Not Available Not Available methocarbam ol 500 mg tablet TAKE ONE TABLET BY MOUTH TWICE DAILY NEEDED FOR MUSCLE PAIN MAY CAUSE DROWSINES S active Not Available Not Available No t Available ketoconazol e 2 % shampoo active Not Available Not Available Not Available metoprolol succinate ER 50 mg tablet,exte nded release 24 hr active Not Available Not Available Not Available valacyclovi r 1 gram tablet active Not Available Not Available Not Available hydrocodone 5 mg-acetamin ophen 325 mg tablet TAKE ONE TABLET BY MOUTH TWICE DAILY MAY CAUSE DROWSINES S active Not Available Not Available No t Available atenolol 25 mg tablet active Not Available Not Available No t Available tramadol 50 mg tablet Take 1 tablet every 6 hours by oral route as needed. active Not Available Not Available No t Available simvastatin 40 mg tablet active Not Available Not Available Not Available acyclovir 800 mg tablet TAKE ONE TABLET BY MOUTH FIVE TIMES DAILY active Not Available Not Available No t Available losartan 100 mg-hydrochl orothiazide 25 mg tablet active Not Available Not Available Not Available Kenalog 10 mg/mL suspension for injection Take 20 mg by injection route. 2023 active Not Available Not Available Not Avai lable gabapentin 300 mg capsule TAKE ONE CAPSULE BY MOUTH FOUR TIMES DAILY MAY CAUSE DROWSINES S active Not Available Not Available No t Available metoprolol succinate ER 25 mg tablet,exte nded release 24 hr active Not Available Not Available Not Available methylpredn isolone 4 mg tablets in a dose pack 05/22 completed Not Available Not Available Not Available propranolol 20 mg tablet active Not Available Not Available Not Available carbidopa 25 mg-levodopa 100 mg tablet active Not Available Not Available Not Available bupivacaine (PF) 0.5 % (5 mg/mL) injection solution Take 2 mL by injection route. 2023 active Not Available Not Available Not Avai lable pregabalin 50 mg capsule active Not Available Not Available Not Available Eliquis 5 mg tablet active Not Available Not Available No t Available Vitals Date Recorded Body height Provider Name an d Address Organization Details Last Updated DateTime 08/21/2023 177.8 cm Ann MALONE [facility] [place] 08/21/2023 14:36:20 Date Recorded Body height Body mass index (BMI) Body weight Provider Name and Address Organization Details Last Updated DateTime 06/26/2023 177.8 cm 22.2 kg/m2 75415.82 g Sue Hilliardalvin MALONE [facility] & [place] 06/26/2023 13:04:37 Social History None recorded. Functional Status None recorded. Mental Status None recorded. Family History Nothing Reported. Medical History Condition Response Other Y Immunizations Vaccine Type Date Status Note Provider Nam e and Address Organization Details Recorded Time COVID-19, mRNA, LNP-S, PF, 100 mcg/0.5mL dose or 50 mcg/0.25mL dose 01/28/2021 completed ABA Richardson [facility] [place] 08/21/2023 14:36:26 Tdap 08/06/2013 completed Ann london ABA Theresa MACENT [facility] & [place] 08/21/2023 14:36:26 Past Encounters Encounter ID Performer Location Encounter Start Date Encounter Closed Date Diagnosis/Indication Diagnosis SNOMED-CT Code Diagnosis ICD10 Code Diagnosis IMO Codes Diagnosis Note [id number] DO NADINE RAI [address] [address] 05/22/2023 10:09:51 05/22/2023 11:08:08 Pain of left shoulder joint 2557754383 6781066 M25.512 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 6896892 G54.5 [id number] PERLADO [facility] [address] [place] [address] 06/26/2023 12:57:31 06/26/2023 13:24:36 Pain of left shoulder joint [id number] 8896619 M25.512 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 2209728686 6348645 G54.5 [id number] PERLADO NADINE [facility] [address] [place] [address] 08/21/2023 14:18:15 08/21/2023 14:56:07 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 6469454578 8122431 G54.5 Subacromia l bursitis of left shoulder 8942773371 827967 M75.52 Rupture of rotator cuff of left shoulder 0099139956 4919447 M75.102 Health Concerns Section Related Observation LastModified by Organization Detai ls LastModified Time None Recorded Concern Status LastModified by Organization Details LastModified Time None Recorded Advance Directives Directive None Recorded Payers Insurance Date Sequence Insurance Name Policy Number Policy Lee Covered Member ID Lee Member ID Guarantor Name 09/22/2023 1 [employer] (MEDICARE REPLACEMENT/ ADVANTAGE - PPO) Molly Moura [id number] Molly Moura Notes Date Note Type Note Provider Name and Address Organization Details Recorded Time 05/22/2023 text/html ROS as noted in the HPI Left shoulder painDOI: 2021 fell into deck, pain started approx 2 months agoSteroid injection [facility] that have helped with pain but still had decreased ROMThis week received 4 different [facility]nerve block[facility], still having a lot of pain with upper arm rashPatient was dx with Parkinsons last [email or web address] PERLA AGUILAR DO [address] [place] [address],[address], [place], [address], [place] - [facility] - [place] & [place] 05/24/2023 16:22:13 06/26/2023 text/html ROS as noted in the HPI 83 year old male presents today for follow-up shoulder pain. patient reports that when he was scheduled to do the EMG patient still had shingles so he cancelled the exam. patient reports he is better but still having significant pain into the shoulder. [email or web address] PERLA AGUILAR, [address] [place] [address],[address], [place], [address], [facility] - [facility] & [place] 06/26/2023 17:46:07 08/21/2023 text/html ROS as noted in the HPI Pt is here for f/u of his left shoulder. He did have an MRI at [facility] related to his pace-maker. He reports he completed 5-6 visits of PT. His ROM is a little better. He reports he is having significant shoulder pain. He is questioning surgery-[email or web address] PERLA AGUILAR, [address] [place] [address],[address], [place], [address], [facility] - [facility] & [place] 08/22/2023 13:46:40
--- OUTSIDE RECORDS SUMMARY | 2025-05-08 18:22 | XMS_ITS | Data Portability ---
Author Organization [facility] Address [address] [place] [address] Care Team Providers Care Field Automobile Adjuster Name Role Phone SARAH CONTRERAS Primary Care Provider Assessment No assessment recorded. Plan of Treatment Reminders Order Date Submit Date Provider Last Modified By Organization Details Last Modified Time Details Appointments Establish ed Patient 2024 01:00P Sindhu Hobson APRN Not available Not available Not available Lab None recorded. Referral nephrolog ist referral - please schedule with Dr. Sheffield 2024 025 bstears Yany Lin, [address], [place] [address], [place], [address], 04/19/2025 14:10:17 Procedures None recorded. Surgeries None recorded. Imaging None recorded. Medication Orders cephalexi n 500 mg capsule 2024 025 [facility] [id number], [address] [place] [address], [address], 04/01/2025 05:01:59 mupirocin 2 % topical ointment 2024 025 [facility] [id number], [address] [place], [address], 03/18/2025 10:39:41 cyanocoba jennifer (vit B-12) 1,000 mcg/mL injection solution 2024 025 [facility] [id number], [address] [place] [address] [place], [address], 03/18/2025 10:39:34 cyanocoba jennifer (vit B-12) 1,000 mcg/mL injection solution 2024 025 [facility] Not available 03/04/2025 17:09:42 Patient TargetsNo targets recorded. Patient InstructionsNo instructions recorded. Reason for Referral [employer] Referral for Se rum creatinine above reference range please schedule with Dr. Sheffield Referring Physician: Justin Hobson, Family Medicine, Encounter Date: 09/18/2024 Results Created Date Observation Date Name Description Value Unit Range Abnormal Flag Note LastModifiedBy Organization Detail LastModifiedTime 08/24/19 25 08/24/2024 rapid flu (A+B) Flu negati ve Not Available [facility] [address] [place], [place] [address] [place], [address], 08/24/2024 10:43:57 08/24/19 25 08/24/2024 rapid flu (A+B) Type Both A & B Not Available [facility] [address] [place], [address], 08/24/2024 10:43:57 10/15/19 25 10/14/2024 [place], modif ied deepika vee study No observ ation record ed. [place] [address] [facility], [place], [address], 10/15/2024 13:17:12 10/23/19 25 10/14/2024 [place], modif ied deepika vee study No observ ation record ed. [facility] [address], [place], [address], 10/27/2024 13:37:43 Result Notes None recorded. 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 Procedures Surgical History Date Name Laterality Status Provider Name and Address Organization Details Recorded Time 08/08/19 Advance Care Planning completed Deborah Monroe [place] - [facility] 08/08/2023 14:01:44 08/08/19 Functional Status Assessed completed Deborah Monroe [place] [facility] 08/08/2023 14:01:44 12/22/19 23 Dexcom Placement completed Justin Hobson, EXECUTIVE SERVICES ADMINISTRATOR [address], [place], [address], [place] [facility] 12/21/2022 09:59:04 07/01/19 22 [...] [facility] 04/23/2022 14:02:33 Eye Surgery completed Deborah Monroe [place] - [facility] 04/23/2022 14:02:40 Imaging Results [...] oral tablet;R ecorded Status: Recorded on: 06/11/20 11:29AM; User: lotus ;EstAmbar Completi on: 06/11/20 08;Print ed: 06/11/20 08 Not [...] sodium 75 mg oral tablet,d elayed release (/EC); Recorded Status: Recorded on: 03/11/20 11:05AM; User: [...] Not Available Not Available No t Available Wilson 5 mg-325 mg tablet Take 1 tablet every day by oral route at bedtime for 6 days, for shoulder pain. 08/08 completed Not Available Not Available Not Available atenolol 50 mg tablet take 1 tablet (50 mg) by oral route once daily for 30 days 09/07 completed atenolol 50 mg oral tablet;R ecorded Status: Recorded on: 03/11/20 11:05AM; User: lotus CooleyEstAmbar Completi on: 09/08/19 10;Print ed: 03/11/20 Not Available [...] Relief 50 mcg/actua tion nasal spray,mookie pension Carey 1 spray every day by intranas al [...] height Body mass index (BMI) Body weight Heart rate Oxygen saturation Oxygen saturation in Arterial blood by Pulse oximetry Respiratory rate Pain severity - 0-10 verbal numeric rating [Score] - Reported Systolic And Diastolic Provider Name and Address Organization Details Last Updated DateTime 5 177.8 cm 22.8 kg/m2 42047.1 9 g 76 /min 96 % 96 % 18 /min 0 118/72 mm[Hg] Deborah TRONCOSO - [facility] 5 14:39:00 Date Recorded Body height Body mass index (BMI) Body weight Body temperature Heart rate Oxygen saturation Oxygen saturation in Arterial blood by Pulse oximetry Respiratory rate Pain severity - 0-10 verbal numeric rating [Score] - Reported Systolic And Diastolic Provider Name and Address Organization Details Last Updated DateTime 5 177.8 cm 23.2 kg/m2 85027.9 6 g 97.6 [degF] 68 /min 95 % 95 % 18 /min 0 118/68 mm[Hg] Deborah TRONCOSO - [facility] 5 13:41:54 Date Recorded Body height Body mass index (BMI) Body weight Body temperature Heart rate Respiratory rate Oxygen saturation Oxygen saturation in Arterial blood by Pulse oximetry Systolic And Diastolic Provider Name and Address Organization Details Last Updated DateTime 5 177.8 cm 23.3 kg/m2 89764.7 6 g 98.4 [degF] 66 /min 18 /min 96 % 96 % 124/72 mm[Hg] Natalie Avalos [place] - [facility] 5 15:38:12 Date Recorded Body height Respiratory rate Body mass index (BMI) Body weight Body temperature Heart rate Oxygen saturation Oxygen saturation in Arterial blood by Pulse oximetry Systolic And Diastolic Provider Name and Address Organization Details Last Updated DateTime 5 177.8 cm 18 /min 22.8 kg/m2 05263.8 9 g 98 [degF] 70 /min 97 % 97 % 116/68 mm[Hg] Natalie Avalos [place] - [facility] 5 15:59:50 Date Recorded Body height Body mass index (BMI) Body weight Respiratory rate Body temperature Heart rate Oxygen saturation Oxygen saturation in Arterial blood by Pulse oximetry Systolic And Diastolic Provider Name and Address Organization Details Last Updated DateTime 5 177.8 cm 22.8 kg/m2 77308.1 9 g 18 /min 98 [degF] 68 /min 97 % 97 % 118/72 mm[Hg] Natalie Avalos [place] - [facility] 5 10:18:07 Social History [...] Or The Highest Degree You Have Received? [id number] Information not available 08/08/2023 Have There Been [...] Do You Have A Medical Power Of Automatic Winder Operator? No Information not available 08/08/2023 What Was [...] anxious, or unable to sleep at night)? [id number] Information not available 08/08/2023 Do you have [...] Y Muscle, Joint, or Bone Problems Y Neuropathy Y Heart Disease Y Immunizations Vaccine Type Date Status Note Provider Nam e and Address Organization Details Recorded Time zoster recombinant 4 completed Deborah Monroe null, [place] - [facility] 05/21/2024 10:56:44 influenza, unspecified formulation 8 completed Not Available [facility] 08/08/2023 13:40:53 Pneumococcal conjugate PCV20, polysaccharide CJA159 conjugate, adjuvant, PF 2 completed Natalie Stears null, [place] - [facility] 05/01/2022 16:39:21 Tdap 2 completed Deborah [place] [facility] 08/08/2023 14:49:14 zoster recombinant 4 completed Natalie Stears null[place] [facility] 03/09/2024 08:46:18 COVID-19, mRNA, LNP-S, PF, 100 mcg/0.5mL dose or 50 mcg/0.25mL dose 1 completed Natalie Stears null, [place] - [facility] 03/09/2024 08:46:19 Tdap 4 completed Natalie Stears null[place] - [facility] 03/09/2024 08:46:19 Past Encounters Encounter ID Performer Location Encounter Start Date Encounter Closed Date Diagnosis/Indication Diagnosis SNOMED-CT Code Diagnosis ICD10 Code Diagnosis IMO Codes Diagnosis Note [id number] Justin Hobson APRN [address] [address] 04/23/2022 13:31:56 04/23/2022 14:35:19 Upper respiratory infection 35814959 J06.9 [id number] Justin Hobson APRN [address] [address] 05/01/2022 15:54:54 05/01/2022 16:37:16 Administration of pneumococcal vaccine 41337861 Z23 [id number] Justin Hobson APRN [address] [address] 08/27/2022 11:15:37 08/27/2022 13:02:24 Acute bronchitis 17867712 J20.9 if symp[toms worsen or do not improve return. Acute maxi llary sinusitis 82094760 J01.00 [id number] Justin Hobson APRN [address] [address] 11/27/2022 09:35:59 11/27/2022 10:49:00 Unintentional weight loss 685852218 R63.4 recommende d colonoscop y and more work up. pt declined at this time wants to talk to cardiology and neurology first Pain of le ft shoulder joint 8578600636 8350257 M25.512 pt does not want more work up at this time wants to wait on mri or ortho consult [id number] Justin Hobson APRN [address] [address] 12/21/2022 09:01:54 12/21/2022 10:00:39 Body mass index 20-24 - normal 930948397 Z68.22 Hypoglycemia 180438683 E 16.2 discussed diet and freq snacks,michael ping snack on hand at all timeseduca tion sheets givendexco m pro placed- return in 10 days for readings and plan of care [id number] Justin Hobson APRN [address] [address] 12/31/2022 13:38:47 12/31/2022 15:31:02 Muscle weakness 32171674 M62.81 Fatigue 50308318 R53.83 discussed dexcom pro resultssee scanned report.no hypoglycem ia seen on pro [id number] Justin Hobson [address] [address] 04/22/2023 15:55:49 04/22/2023 16:36:09 Herpes zoster 9986090 B02.9 contact precaution s discussedf ollow up with pain management tomorrow [id number] Justin Hobson [address] [address] 05/21/2023 10:54:20 05/21/2023 11:46:27 Pain of left shoulder joint 1555246198 0564265 M25.512 follow up with ortho tomorrow Herpes zoster 7888921 B0 2.9 contact precaution s discussed [id number] Justin Hobson [address] [address] 06/10/2023 11:19:02 06/10/2023 12:10:27 Abnormal gait due to impairment of balance 539775827 R26.89 Pain of le ft shoulder joint 9992032478 5154061 M25.512 spoke with Merle Marie APRN with pain management and she agrees/ok to give a few days of norco until his visit with her. at that appointmen t she will discuss more options with ptfollow up with pain management and ortho as scheduled [id number] Justin Hobson [address] [address] 08/08/2023 13:40:10 08/08/2023 14:45:30 Adult health examination 209632232 Z00.00 Depression screening 171 015153 Z13.31 Examinatio n of blood pressure 405977013 Z01.30 Diet education 35462044 Z71.3 Counseling 003133201 Z71 .82 Exercise counseling . Patient encouraged to exercise 30 minutes 5 days a week. At [facility] ed risk for falls 774161553 Z91.81 STEADI FAST screening score of . Advance care planning 71 3750777 Z71.89 Body mass index 20-24 - normal 790585696 Z68.23 23.7 Parkinson's disease 4904 9000 G20.A1 continue treatment with neurology and pain mangement [id number] Justin Hobson EXECUTIVE SERVICES ADMINISTRATOR [address] [address] 10/28/2023 16:24:53 10/28/2023 17:18:41 Parkinson's disease 36668372 G20.A1 continue treatment with neurology and pain management Prediabetes 784070781 R7 3.03 Pain of le ft shoulder joint 7373070666 9960066 M25.512 keep appointmen t with ortho [id number] Justin Hobson EXECUTIVE SERVICES ADMINISTRATOR [address] [address] 12/05/2023 15:39:40 12/05/2023 16:48:32 Parkinson's disease 95465246 G20.A1 needs clearance with cardiology pt is moderate risk for surgery Rhythm fro m artificial pacing 19511319 Z95.0 needs clearance with cardiology pt is moderate risk for surgery Cardiac pa cemaker in situ 149806988 Z95.0 needs clearance with cardiology pt is moderate risk for surgery History of mechanical heart valve replacement 1135560852 9109 Z95.2 needs clearance with cardiology pt is moderate risk for surgery [id number] Justin Hobson EXECUTIVE SERVICES ADMINISTRATOR [address] [address] 03/09/2024 08:38:00 03/09/2024 09:28:30 Parkinson's disease 16313943 G20.A1 continue seeing neuro Rhythm fro m artificial pacing 89761250 Z95.0 Heart valve disorder 368 009 I35.8 once labs resulted fax to dr smith- phone [id number] Justin Hobson EXECUTIVE SERVICES ADMINISTRATOR [address] [address] 05/21/2024 10:44:24 05/21/2024 11:29:38 Aftercare 630381847 Z51.89 dressing applied - follow up with dermatolog y call office if bleeding starts [id number] Justin Hobson APRN [address] [address] 07/23/2024 08:49:38 07/23/2024 09:59:45 Mixed hyperlipidemia 637203529 E78.2 Pain in left arm 9517878 00 M79.602 will order us to r/o dvt- on blood thinners Prediabetes 796204597 R7 3.03 [id number] Justin Hobson APRN [address] [address] 08/04/2024 15:19:12 08/04/2024 16:00:53 Upper respiratory infection 64033541 J06.9 no sign of a bacterial infection. likely viral. viruses can take 7-14 days to run their course. nasal saline and bulb syringe to remove nasal drainage to help with congestion . monitor temp. Tylenol or Motrin as needed for pain or fever. encourage fluids, water, Gatorade, power aide, Pedialyte if /tod dler/child warm salt water gargles warm fluids sore throat lozenges sleep elevated humidifier /vaporizer follow up immediatel y for new or worsening symptoms or no noticeable improvemen t over the next 48-72 hours [id number] [facility] [address] [place] [address] 08/24/2024 10:33:51 08/24/2024 11:08:05 Viral screening 919957935 Z11.59 Cough 67761873 R05.9 Advised to drink plenty of fluids, run a cool-mist humidifier in room at night, gargle salt water for sore throat, and get plenty of rest. Patient should avoid over-exert ion and reduce exposure to irritants such as smoke, cold, dry air, and dust. Antihistam ine and decongesta nt usage was discussed and recommenda tions made. Nasal congestion 9921316 0 R09.81 [id number] [address] [address] 09/18/2024 14:12:52 09/18/2024 16:23:21 Parkinson's disease 78686005 G20.A1 continue seeing neuro Serum crea tinine above reference range 620763818 R79.89 [id number] [address] [address] 09/25/2024 13:28:50 09/25/2024 14:11:51 Cough 43963885 R05.9 Allergic rhinitis 553922 04 J30.9 flonase and claritinre turn for any concerns [id number] Justin Frank[address]armen[address] [address] 10/26/2024 15:19:43 10/26/2024 16:09:10 Parkinson's disease 64869501 G20.A1 continue seeing neurolook over paperwork Pain of le ft shoulder joint 2504214203 0442578 M25.512 [id number] discuss adding meds to gabpentin to the dr that writes gabapentin . [id number] Justin Hobson[address] [address] 03/04/2025 15:36:32 03/04/2025 17:08:40 Cobalamin deficiency 285160733 E53.8 Pain in left arm 4394968 00 M79.602 [id number] Justin [address] [address] 03/18/2025 09:56:32 03/18/2025 10:52:00 Cobalamin deficiency 162908827 E53.8 Tear of skin 785356524 S 41.119A 0187264212 left forearmcle aned with hipacleans antibiotic ointment appliedtel fa and gauze applied Health Concerns Section Related Observation LastModified by Organization Detai ls LastModified Time None Recorded Concern Status LastModified by Organization Details LastModified Time None Recorded Advance Directives Directive N: Payers Insurance Date Sequence Insurance Name Policy Number Policy Lee Covered Member ID Lee Member ID Guarantor Name 05/08/2025 1 [employer] (MEDICARE REPLACEMENT/ ADVANTAGE - PPO) Molly Moura [id number] Molly Moura Notes Date Note Type Note Provider Name and Address Organization Details Recorded Time 09/18/2024 text/html 84 yr old male presents for a follow up on lab results and a difficult time holding urine. Justin Hobson APRN [address], [place], [address], [place] - [facility] 11/09/2024 09:06:01 09/25/2024 text/html 84 yr old male presents with clear sinus drainage. Justin Hobson APRN [address], [place], [address], [place] - [facility] 11/09/2024 09:19:55 10/26/2024 text/html 84 year old male who presents to the office today for a follow up on left shoulder discomfort, pt states he takes gabapentin, but has read that Amitriptyline would compliment the gabapentin for pain relief. was discharged from speech therapy today at [facility] to give Francheskasevenmadan a copy and review results from national supplemental screening program for previous work at [employer]. Justin Hobson APRN [address], [place], [address], [place] - [facility] 11/09/2024 09:19:10 03/04/2025 text/html ROS as noted in the [facility] 84 year old male who presents to the office today with concerns ofwants b 12 injection to help with mending of left arm- recommended by ortho Justin Hobson APRN [address], [place], [address], [place] - [facility] 03/04/2025 17:01:37 03/18/2025 text/html ROS as noted in the [facility] 84 year old male who presents to the office today with concerns ofskin tear on left lower arm, happened on Saturday with a golf cartb 12 injection Justin Hobson APRN [address], [place], [address], [place] [facility] 05/03/2025 14:09:59
[2025-05-08 18:26] LABS: Albumin Level 5.2 g/dl (3.5-5.0); Chloride 103 mmol/L (98-107); Potassium 4.1 mmoL/L (3.5-5.1); Sodium 139 mmol/L (136-145)
[2025-05-08 18:28] LABS: Alanine Aminotransferase 7 U/L (12-78); Anion Gap 12.1 mEq/L (5-15); Aspartate Amino Transferase 29 U/L (17-59); Blood Urea Nitrogen 27 mg/dl (9-20); Carbon Dioxide 28 mmol/L (22.0-30.0); Creatinine,Serum 1.40 mg/dl (0.66-1.25); Estimated Glomerular Filt Rate 48 ml/min (>60); GFR (African American) 59 ML/MIN (>60)
[2025-05-08 18:29] LABS: Albumin/Globulin Ratio 2.7 (1.1-1.8); Alkaline Phosphatase 56 U/L (38-126); Bilirubin,Total 0.8 mg/dl (0.2-1.3); Calcium 9.3 mg/dl (8.4-10.2); Cholesterol 106 mg/dl (140-200); Globulin 1.9 g/dL (1.3-3.2); Glucose 103 mg/dl (74-100); HDL Cholesterol 51 mg/dl (40-60); Total Protein,Serum 7.1 g/dl (6.3-8.2); Triglycerides 159 mg/dl (30-150)
[2025-05-08 18:31] VITALS: BP 148/74; PULSE 64; O2SAT 96
[2025-05-08 18:33] LABS: Activated Partial Thrombo Time 26.9 seconds (22.8-30.6); INR 1.05 (0.9-1.1); Prothrombin Time 11.6 seconds (10.1-12.5)
[2025-05-08 18:35] VITALS: O2SAT 98
[2025-05-08 18:45] VITALS: PULSE 58; O2SAT 96
[2025-05-08 18:45] LABS: Troponin I < 0.01 ng/ml (0.00-0.034)
[2025-05-08 19:08] LABS: Microscopic, Urine URINE MICROSCOPIC (MICROSCOPIC)
[2025-05-08 19:09] LABS: Bilirubin,Urine Negative (Negative); Color,Urine YELLOW (Yellow); Glucose,Urine (UA) Negative (Negative); Ketones,Urine Negative (Negative); Leukocyte Esterase,Urine Negative (Negative); PH,Urine 6.0 (5.0-8.5); Protein,Urine Negative (Negative); Specific Gravity, Urine 1.010 (1.005-1.030); Urobilinogen,Urine 0.2 EU/dl (0.2)
--- NOTE | 2025-05-08 19:14 | PC.NURSE ---
Called for a Neuro-surgery consult
--- NOTE | 2025-05-08 19:19 | ED_ITS ---
<Statement entered by Tracy Salinas MD - 05/08/25 22:56> I was consulted by the [facility], and we discussed the complexity of the problems being addressed. I approved the treatment and management plan for this patient's care in the emergency department, thus performing a substantive portion of the medical decision making. Tracy Salinas MD, OMID, FACEP Discharge Plan Disposition Patient Disposition: Home, Self-Care Prescriptions Prescriptions: No Action atenolol 25 mg tablet 25 mg PO DAILY simvastatin 40 mg tablet 40 mg PO DAILY losartan-hydrochlorothiazide 100-25 mg tablet 1 tab PO DAILY propranolol 20 mg tablet 20 mg PO DAILY Eliquis 5 mg tablet 5 mg PO DAILY methocarbamol 500 mg tablet 500 mg PO BIDP PRN (Reason: muscle pain) Qty: 14 0RF hydrocodone-acetaminophen 5-325 mg tablet 1 tab PO BID Qty: 14 0RF gabapentin 300 mg capsule 300 mg PO QID Qty: 120 0RF Referrals Follow up/Referrals: Justin Hobson APRN [Primary Care Provider, Medical] - See instructions Activity Restrictions/Add. Instructions Additional Instructions/Restrictions: Today you were evaluated in the emergency department and had CT scans of your head. 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 Please follow-up with your Parkinson's clinic. Please follow-up with your PCP. Return to the ED for worsening of condition. Clinical Impressions Clinical Impression: Hygroma Instructions Patient Instructions: DI for Parkinson Disease Print Language Print Language: Icelandic Discharge ED Provider: Tracy Salinas General Adult HPI General Chief complaint: Neuro Symptoms/Deficit Stated complaint: hard time walking and talking Time Seen by Provider: 05/08/25 18:12 Mode of Arrival: Ambulatory Source of Information: Patient and Relative Description of Symptoms (Recalled from ER Triage Doc. by RN): pt presents to the ED with slurred speech and weakness that started around 14:00 per pts . pt states that he has been making weird faces and had slurred speech. pt reports that he feels like his tongue feels weird. Denies chest pain and shortness of breath. Pt currently on blood thinners. hx of Parkinson's disease. NIH 2. Pt states he was in the bathroom this afternoon when he started feeling weak and noticed the slurred speech. Glucose 106. Stoke Alert activated at 18:08. History of Present Illness HPI narrative: patient is an 85-year-old male PMHx Parkinson's, caroline, who presents to the ED after developing slurred speech, difficulty word finding at 1400 today. Patient states that he followed up with his Parkinson's clinic last week and had a normal checkup. He reports he has never experienced the symptoms before, does not have any additional symptoms. He denies any recent falls or trauma. Denies headache, visual changes, chest pain, shortness of breath. Related Data Home Medications ?Medication ?Instructions ?Recorded ?Confirmed apixaban 5 mg tablet (Eliquis) 5 mg PO DAILY 04/11/23 09/18/23 atenolol 25 mg tablet 25 mg PO DAILY 04/11/2308/30 losartan 100 1 tab PO DAILY 04/11/2308/30 mg-hydrochlorothiazide 25 mg tablet propranolol 20 mg tablet 20 mg PO DAILY 04/11/2308/30 simvastatin 40 mg tablet 40 mg PO DAILY 04/11/2308/30 Previous Rx's ?Medication ?Instructions ?Recorded methocarbamol 500 mg tablet 500 mg PO BIDP PRN muscle pain #14 04/11/23 tabs hydrocodone 5 mg-acetaminophen 325 1 tab PO BID #14 ta bs 05/08/23 mg tablet gabapentin 300 mg capsule 300 mg PO QID #120 caps 08/30 Allergies Allergy/AdvReac Type Severity Reaction Status Date / Time No Known Allergies Allergy Verified 05/14/23 08:22 [facility] Disclaimer: The information contained in this section may have been updated after the patient was seen, as this information can be updated by other users. Medical History (Updated 05/08/25 @ 19:50 by Dasia Razo APRN) Pacemaker Irregular heart rate HLD (hyperlipidemia) HTN (hypertension) Surgical History H/O ascending aortic replacement H/O aortic valve replacement Family History Other No significant family history Social History Smoking Status: Never smoker alcohol intake: never substance use type: denies use current occupational status: retired Travel in the last 8 weeks?: None Have you lived/traveled outside [place] in past 30 days?: No Contact w/someone who lives/traveled outside US past 30 days?: No Exposure to someone with infectious disease in past 14 days?: No Do you have a fever (greater than 100.4 F or 38 C)?: No Have you tested positive for COVID-19?: No Exposed to someone with COVID-19 in past 14 days?: No Do you have a sore throat?: No Do you have a cough?: No Do you have any weakness?: No Do you have any diarrhea?: No Are you experiencing any unusual bleeding?: No Do you have any muscle aches/pain?: No Do you have any abdominal pain?: No Are you experiencing loss of taste or smell?: No Other Medical History Have you received the Flu Vaccine for this season: No Have you received the Pneumonia Vaccine: Yes ROS Obtained: Yes Systems reviewed as appropriate & no additional complaints except as documented Physical Exam General General appearance: alert Eye Eye exam: Present PERRL Respiratory Respiratory exam: Present normal lung sounds bilaterally Cardiovascular Cardiovascular exam: Present regular rate Neurological Exam Neurological exam: Present alert and other (Mild slurred speech) Skin Skin exam: Present warm Medical Decision Making Medical Records Screening: Per USPSTF and CDC recommendations, given the prevalence of disease in our region, it is our hospital?s policy to screen for HIV and viral Hepatitis for all patients aged 18 and over and those with ongoing risk factors. [place] Inquiry Pt receiving controlled substance: No Vital Signs: 05/08/25 17:52 05/08/25 17:52 05/08/25 18:01 Temperature 97.6 F 97.6 F Temperature Source Oral Oral Pulse Rate 67 61 Pulse Rate [Right] 67 Respiratory Rate 16 16 Blood Pressure 136/74 136/74 Blood Pressure [Right Arm] 136/74 Blood Pressure Mean [Right Arm] 94 Blood Pressure Source Automatic Cuff Blood Pressure Source [Right Arm] Automatic Cuff Blood Pressure Position Supine Blood Pressure Position [Right Arm] Supine 02 Sat by Pulse Oximetry 97 97 96 Oxygen Delivery Method Room Air Room Air 05/08/25 18:31 05/08/25 18:35 05/08/25 18:45 Temperature Temperature Source Pulse Rate 64 58 L Pulse Rate [Right] Respiratory Rate Blood Pressure 148/74 H Blood Pressure [Right Arm] Blood Pressure Mean [Right Arm] Blood Pressure Source Blood Pressure Source [Right Arm] Blood Pressure Position Blood Pressure Position [Right Arm] 02 Sat by Pulse Oximetry 96 98 96 Oxygen Delivery Method Room Air Room Air Room Air 05/08/25 19:52 Temperature 97.9 F Temperature Source Oral Pulse Rate 74 Pulse Rate [Right] Respiratory Rate 16 Blood Pressure 148/74 H Blood Pressure [Right Arm] Blood Pressure Mean [Right Arm] Blood Pressure Source Automatic Cuff Blood Pressure Source [Right Arm] Blood Pressure Position Supine Blood Pressure Position [Right Arm] 02 Sat by Pulse Oximetry Oxygen Delivery Method Room Air Lab Data Lab Results 05/08/25 18:07: WBC 7.8, RBC 4.71, Hgb 14.3, Hct 43.8, MCV 93.0, MCH 30.4, MCHC 32.6, RDW 13.5, Plt Count 156, MPV 11.2 H, Neut % (Auto) 67.4, Lymph % (Auto) 21.7, [place] % (Auto) 7.7, Eos % (Auto) 2.3, Baso % (Auto) 0.5, Neut # (Auto) 5.2, Lymph # (Auto) 1.7, [place] # (Auto) 0.6, Eos # (Auto) 0.2, Baso # (Auto) 0.0, PT 11.6, INR 1.05, APTT 26.9, Sodium 139, Potassium 4.1, Chloride 103, Carbon Dioxide 28, Anion Gap 12.1, BUN 27 H, Creatinine 1.40 H, Estimated GFR 48 L, Est GFR ( Amer) 59, Glucose 103 H, Calcium 9.3, Total Bilirubin 0.8, AST 29, ALT 7 L, Alkaline Phosphatase 56, Troponin I < 0.01, Total Protein 7.1, Albumin 5.2 H, Globulin 1.9, Albumin/Globulin Ratio 2.7 H, Triglycerides 159 H, C holesterol 106 L, LDL Cholesterol Direct 50.43 L, VLDL Cholesterol 32, HDL Cholesterol 51, Cholesterol/HDL Ratio 2.1, Plasma/Serum Alcohol < 10 05/08/25 19:02: Urine Color Yellow, Urine Appearance Clear, Urine pH 6.0, Ur Specific [place] 1.010, Urine Protein Negative, Urine Glucose (UA) Negative, Urine Ketones Negative, Urine Blood Negative, Urine Nitrate Negative, Urine Bilirubin Negative, Urine Urobilinogen 0.2, Ur Leukocyte Esterase Negative, Urine RBC None, Urine WBC None, Ur Squamous Epith Cells None, Urine Bacteria None, Urine Opiates Screen Negative, Urine Methadone Screen Negative, Ur Barbituates Screen Negative, Ur Phencyclidine Scrn Negative, Ur Amphetamines Screen Negative, U Benzodiazepines Scrn Negative, Urine Cocaine Screen Negative, U Marijuana (THC) Screen Negative 05/08/25 18:07 05/08/25 18:07 Orders (Tests/Meds): ED MEDICATIONS Discontinued Medications Generic Name Dose Route Start Last Admin Trade Name Freq PRN Reason Stop Dose Admin Iopamidol 80 ml 05/08/25 18:19 05/08/25 18:20 Iopamidol-370 (76%);100ml Bottle IV 05/08/25 18:20 80 ml ONCE ONE Administration Sodium Chloride 10 ml 05/08/25 18:10 Sodium Chloride 0.9% 10ml Flush Syringe IV 06/07/25 18:09 NEEDED PRN Maintain IV Site Sodium Chloride 50 ml 05/08/25 18:19 05/08/25 18:20 0.9 % Sodium Chloride 50 Ml Vial IV 05/08/25 18:20 50 ml ONCE ONE Administration Sodium Chloride 10 ml 05/08/25 18:19 05/08/25 18:20 Sodium Chloride 0.9% 10ml Syr (Rad Only) IV 05/08/25 18:20 10 ml ONCE ONE Administration ORDERS Category Date Time Status CT angio head Stat Cat Scan 05/08/25 18:[address] angio neck Stat Cat Scan 05/08/25 18:[address] head/brain wo con Stat Cat Scan 05/08/25 18:10 Completed Activated Partial Thrombo Time Stat Lab 05/08/25 18:07 Completed Complete Blood Count Auto Diff Stat Lab 05/08/25 18:07 Completed Comprehensive Metabolic Panel Stat Lab 05/08/25 18:07 Completed Drug Screen,Urine Stat Lab 05/08/25 19:02 Completed Ethyl Alcohol Stat Lab 05/08/25 18:07 Completed HIV Combo Stat Lab 05/08/25 18:35 Ordered Hepatitis C Ab Qual. W/ RFX Stat Lab 05/08/25 18:35 Ordered Lipid Panel Stat Lab 05/08/25 18:07 Completed Prothrombin Time INR Stat Lab 05/08/25 18:07 Completed Troponin I Stat Lab 05/08/25 18:07 Completed Urinalysis and Microscopic Stat Lab 05/08/25 19:02 Completed ECG Request Stat Y 05/08/25 18:10 Ordered Medical Decision Narrative: In summary, patient is an 85-year-old male PMHx Parkinson's, shingles, valve replacement (eliquis) who presents to the ED after developing slurred speech, difficulty word finding at 1400 today. Patient states that he followed up with his Parkinson's clinic last week and had a normal checkup. He reports he has never experienced the symptoms before, does not have any additional symptoms. He denies any recent falls or trauma. Denies headache, visual changes, chest pain, shortness of breath. 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 He does have what I would consider a mild slur in his speech and started once during our conversation. Differential diagnosis include stroke, were consisting of Parkinson's, infectious process, among others. Called a stroke alert on the patient. Neck CTA and head CT are normal, CTA remarkable for a 3 subdural hygromas measuring 5 to 7 mm in thickness which exhibit minor mass effect on the bilateral parietal lobes and frontal lobe. I did consult [facility] (Dr. Durand) to discuss these findings with them, they do not think this is causing anything acute and advised him to follow back up with his Parkinson's clinic. CBC unremarkable for any leukocytosis, stable H&H. CMP remarkable for BUN 27, creatinine 1.40, GFR 48. Troponin < 0.01. Elevated triglycerides, cholesterol and LDL. Urinalysis unremarkable for any infectious process. Negative alcohol. Discussed with patient workup today is overall unremarkable. Advised him he will need to follow back up with his Parkinson's clinic, advised to follow-up with his PCP. We discussed return precautions to the ED and patient and family member verbalized understanding. Critical Care Critical Care Time Critical Care Time: No
[2025-05-08 19:21] LABS: Benzodiazepines Screen,Urine Negative ng/ml (<200)
[2025-05-08 19:22] LABS: Amphetamine/Metha Screen,Urine Negative ng/ml (<1000); Barbiturates Screen,Urine Negative ng/ml (<200)
[2025-05-08 19:24] LABS: Methadone Screen,Urine Negative ng/ml (<300)
[2025-05-08 19:25] LABS: Opiate Screen,Urine Negative ng/ml (<300)
[2025-05-08 19:26] LABS: Phencyclidine Screen,Urine Negative ng/ml (<25)
[2025-05-08 19:52] VITALS: BP 148/74; PULSE 74; RESP 16; TEMP 36.6; O2SAT 98
[2025-05-08 22:33] LABS: Hepatitis C Ab Qual. W/ RFX NEGATIVE (Negative)
== END 2025-05-08 20:05 | disposition home or self-care (01) ==
PROVIDERS: Nurse Practitioner; Emergency Provider Student in an Organized Health Care Education/Training Program; PCP Nurse Practitioner Family
DX: D18.1 Lymphangioma, any site (principal); R47.81 Slurred speech; G20.C Parkinsonism, unspecified; I10 Essential (primary) hypertension; E78.5 Hyperlipidemia, unspecified
CPT/HCPCS: 70450; 70496; 70498; 80053; 80061; 80307; 80320; 81001; 84484; 85025; 85610; 85730; 86803; 87389; 93005; 99285; Q9967